=== PATIENT | female | born 1945 | race Caucasian/White ===

== ENCOUNTER → 2016-04-24 | Day surgery (SDC) | payer OTHER ==
[~2016-04-24] MED LIST: BUPIVACAINE HCL/PF 0.5% (5MG/ML) 10 ML VIAL ONE; BUPIVACAINE HCL/PF 2.5 MG/ML - 30 ML VIAL IJ ONE; DEXAMETHASONE SOD PHOSPHATE 4 MG/1 ML VIAL ONE; ISOSULFAN BLUE 10 MG/ML VIAL SQ ONE; LIDOCAINE HCL 2% JELLY (5 ML/TUBE) ONE; MIDAZOLAM HCL 2 MG/2 ML SINGLE DOSE VIAL ONE; ONDANSETRON 4 MG/2 ML VIAL ONE; PROPOFOL 20 ML ONE; ROCURONIUM BROMIDE 50 MG/5 ML VIAL ONE; SUCCINYLCHOLINE CHLORIDE 200 MG/10 ML VIAL ONE; ceFAZolin SODIUM 1 GM VIAL ONE
--- NOTE | 2016-04-26 09:47 | PATH ---
Surgical Pathology Report Patient Name: SHERRIE SCOTT [facility]. Rec. #: [id number] /Age/Gender: 1945 (Age: 70) / F Account: [id number] Location: [facility] RADIOLOGY U Taken: 04/24/2016 Received: 04/24/2016 Reported: 04/26/2016 Physicians: Adele Maier M.D. Specimen(s) Received LEFT BREAST CORE BIOPSY 1:00, 11CM FN Clinical History US: highly suspicious/malignant, left breast, 1:00, 11 cm FN Final Diagnosis BREAST, LEFT, 1:00, 11 CM FROM NIPPLE, US GUIDED CORE BIOPSY: INVASIVE DUCTAL CARCINOMA, MODERATELY DIFFERENTIATED, WITH LOBULAR GROWTH PATTERN (SEE COMMENT). 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 Comment: The largest extent of invasive carcinoma in one core is 1.0 cm. Immunohistochemical stain for E-cadherin performed and interpreted [facility] shows tumor cells with strong membranous staining for E-cadherin supporting ductal phenotype. Results of Estrogen Receptor (ER) and Progesterone Receptor (ND) studies performed at [facility] are as follows: ER (clone [id number] mouse monoclonal antibody by [employer]): >90% nuclear staining with strong to moderate intensity (Positive). ND (clone16 mouse monoclonal antibody by [employer]): 0% nuclear staining (Negative). Results of Her2 and Ki67 studies will be reported separately in an addendum. Positive and negative controls (internal if applicable) show appropriate results. Formalin fixation and cold ischemic times are within current ASCO/CAP recommendations for ER, ND and Her2 testing. Electronically Signed Isaías Snow M.D. Addendum Reported: 04/27/2016 Addendum Diagnosis Results of Her2 (IHC) & Ki-67 studies performed at [place], [place] (ET17-46) are as follows: Her2 IHC (EP3 from [employer], formerly known as [id number], using [employer] Polymer Refine detection kit): 3+ (Positive) Ki-67: 25-30% (Intermediate to high proliferation index) Positive and negative controls (internal if applicable) show appropriate results. Isaías Gwendolyn, M.D. Gross Description Received in formalin, labeled "left breast core biopsy 1:00" are five cylindrical fragments of doshi-pink tissue ranging from 0.7-1.6 cm in length and averages 0.2 cm in diameter. Submitted entirely in one cassette. Time to fixation: 1 min Formalin fixation time: ~7h AF/04/24/2016 final/04/24/2016
== END | disposition home or self-care (01) ==
LOC: FRADUS-SUR 12:22
PROVIDERS: ATTEND Surgery Surgical Oncology
PROC: 0HBU3ZX Excision of Left Breast, Percutaneous Approach, Diagnostic (ICD-10-PCS; principal; 2016-04-24)
DX: N63 Unspecified lump in breast (principal); C50.412 Malignant neoplasm of upper-outer quadrant of left female breast; D05.12 Intraductal carcinoma in situ of left breast
CPT/HCPCS: 19083; 88305-TC; 88342-TC

== ENCOUNTER 2016-05-16 07:26 | Day surgery (SDC) | payer OTHER ==
--- NOTE | 2016-05-09 15:31 | HP ---
Admitting History and Physical - Primary Care Physician PCP: Oscar Saucedo - Admission Chief Complaint: Left breast cancer History of Present Illness: 70 year old old female with 04/2016 mammogam showing 1.8cm mass left breast upper outer quadrant with microcalcifications and spiculated margins.. US showed 1.1 cm cm mass at 1:00 11 cm posterior from nipple. US core bx 04/24/2016 left breast 1:00 showed invasive ductal carcinoma and DCIS. History Source: Patient Limitations to Obtaining History: No Limitations - Past Medical History Cardiovascular: Yes: HTN, Hyperlipdemia - Past Surgical History Additional Past Surgical History: D and C - Smoking History Smoking history: Never smoked Have you smoked in the past 12 months: No Aproximately how many cigarettes per day: 0 - Alcohol/Substance Use Hx Alcohol Use: No Home Medications - Allergies Allergies/Adverse Reactions: Allergies Allergy/AdvReac Type Severity Reaction Status Date / Time aspirin AdvReac Severe Difficulty Verified 10/08/15 16:36 Breathing codeine [Codeine] AdvReac Severe Difficulty Verified 10/08/15 16:36 Breathing - Home Medications Home Medications: Ambulatory Orders Atorvastatin Ca [Lipitor] 10 mg PO HS 10/10/14 Family Disease History - Family Disease History Other Family History: maternal cousin 50 breast ca Physical Examination Breast(s): Yes: Other (diffusely nodular and dense 1.5 cm left UOQ firm mobile mass no adenopathy, right breast negative) Problem List - Problems (1) Breast cancer, left Code(s): C50.912 - MALIGNANT NEOPLASM OF UNSPECIFIED SITE OF LEFT FEMALE BREAST Qualifiers: Breast location: upper outer quadrant of breast Patient gender: female Qualified Code(s): C50.412 - Malignant neoplasm of upper-outer quadrant of left female breast Assessment/Plan Left breast wide excision mammogram localization, lymphoscintogram, sentenl node biopsy possible axillary node dissection, intra op radiation
[2016-05-10 13:55] VITALS: BMI 32.2
[2016-05-16] MEDS ORDERED: ONDANSETRON 4 MG/2 ML VIAL IVPB PRN (14:43)
[2016-05-16] MEDS ORDERED: DEXTROSE 5%-0.45% SALINE 1,000 ML IV SCH (14:45)
[2016-05-16] MEDS ORDERED: NEOSTIGMINE METHYLSULFATE 0.5 MG/ML - 10 ML MDV ONE (17:03)
[2016-05-16] MEDS ORDERED: oxyCODONE HCL 5 MG TABLET PO PRN (17:06)
[2016-05-16] MEDS ORDERED: PROMETHAZINE HCL 25 MG/1 ML VIAL IVPUSH PRN (17:06)
[2016-05-16] MEDS ORDERED: GLYCOPYRROLATE 0.2 MG/1 ML VIAL ONE (17:21)
--- NOTE | 2016-05-16 17:51 | PN ---
Progress Note (short form) - Note Progress Note: I was called in for intraoperative radiotherapy as part of the planned procedure. Dr. Saucedo removed the primary and sampled the lymph node. He felt that the node was highly suspicious for metastatic disease. We discussed whether to proceed with intraoperative radiation therapy. We agreed that if the node is positive she will still need external beam radiation. We decided not to deliver intraoperative treatment.
[2016-05-16] MEDS ORDERED: oxyCODONE HCL 5 MG TABLET ONE (19:11)
[2016-05-16 20:01] VITALS: BP 114/74; PULSE 72; TEMP 97.6
--- NOTE | 2016-05-17 08:58 | OP ---
DATE OF OPERATION: 05/16/2016 PREOPERATIVE DIAGNOSIS: Left breast cancer. POSTOPERATIVE DIAGNOSIS: Left breast cancer. PROCEDURE: Left breast partial mastectomy with tissue transfer and sentinel lymph node biopsy. ANESTHESIA: General, intubated. ATTENDING SURGEON: Dana Saucedo MD RESIDENTIAL TREATMENT COUNSELOR: LORETTA Kong COMPLICATIONS: None. PROCEDURE: Patient was made aware of the risks and benefits of the procedure and consented. Preoperatively, she had gone to Radiology where a needle was placed to index the lesion and Nuclear Medicine where technetium was infiltrated into the peritumoral tissue. She was then brought to the operating room and placed in the supine position. After general anesthesia was induced, the patient was intubated. Then 2.5 mL of 1% was infiltrated into the peritumoral tissues. The operative site was then prepped and draped in the usual sterile fashion. After approximately 10 minutes with gentle manual compression, a curvilinear incision was made in the left axilla, somewhat medially. Using electrocautery, tissues were dissected down to the axillary fat. Using the probe and the visual cue of the blue dye, 3 lymph nodes were excised; 2 of which were firm and very suspicious for malignancy. Palpation of the rest of the area revealed no other suspicious lymph nodes and the residual radioactive counts were less than 10% of the baseline. The lymph nodes were then submitted for permanent sectioning. Since the lesion was quite laterally in the axillary tail, a thick skin flap was made and the needle was withdrawn through the puncture site and wound out through the wound. Tissues around the wire were then sharply excised and submitted with a short suture superior. Specimen radiograph confirmed the presence of the index lesion. Additional segments were taken medial, inferior, lateral, superior, and anterior with a clip at the new margin. There is no deep section taken as the original specimen was dissected down to the pectoralis muscle. At this point, because the axillary nodes were felt to be positive and the defect was large with no real lateral border to buttress intraoperative radiation, this procedure was cancelled and the patient will receive full breast radiation with postoperative boost. The wound was copiously irrigated with normal saline. Hemostasis was maintained by electrocautery. Tissue flaps were made by taking the breast tissue off of pectoralis muscle superiorly and inferiorly, rotating in the tissue, filling in the defect with [id number] sutures and multiple layers of 2-0 Vicryl. The skin was then closed with deep 3-0 Vicryl followed by running subcuticular 4-0 Monocryl. Steri-Strips and sterile bandage was then applied. The patient tolerated the procedure well and was sent to the recovery room in excellent condition. DANA SAUCEDO M.D. [id number]
--- NOTE | 2016-05-19 13:24 | PATH ---
Surgical Pathology Report Patient Name: SHERRIE SCOTT [facility]. Rec. #: [id number] /Age/Gender: 1945 (Age: 70) / F Account: [id number] Location: [facility] AMBULATORY Taken: 05/16/2016 Received: 05/16/2016 Reported: 05/19/2016 Physicians: Oscar Saucedo M.D. Specimen(s) Received A: LEFT AXILLARY SENTINEL LYMPH NODES B: LEFT BREAST WIDE EXCISION C: LEFT BREAST MEDIAL SEGMENT D: LEFT BREAST INFERIOR SEGMENT E: LEFT BREAST LATERAL SEGMENT F: LEFT BREAST SUPERIOR SEGMENT G: LEFT BREAST ANTERIOR SEGMENT Clinical History Wide excision: Invasive Ca Final Diagnosis A. LYMPH NODES, LEFT AXILLARY SENTINEL, EXCISION: METASTATIC CARCINOMA INVOLVING ONE OF FOUR LYMPH NODES (1/4). THE LARGEST FOCUS OF METASTATIC CARCINOMA MEASURES 1.5 CM IN GREATEST DIMENSION (MACROMETASTASIS) AND EXTENSIVELY INVOLVES THE LYMPH NODE. EXTRANODAL EXTENSION IS IDENTIFIED. B. BREAST, LEFT, WIDE EXCISION: INVASIVE DUCTAL CARCINOMA, POORLY DIFFERENTIATED (TUBULE SCORE: 3/3, NUCLEAR GRADE:3/3, MITOTIC SCORE: 2/3; TOTAL JOSE SCORE: 8/9), MEASURING 1.4 CM IN GREATEST DIMENSION, MICROSCOPICALLY. DUCTAL CARCINOMA IN SITU (DCIS), SOLID TYPE, HIGH NUCLEAR GRADE IS PRESENT ADMIXED WITH INVASIVE CARCINOMA A MINOR COMPONENT. INVASIVE CARCINOMA EXTENDS TO THE MEDIAL MARGIN ALONG A BROAD FRONT AND FOCALLY TO THE ANTERIOR MARGIN. DCIS IS FOCALLY CLOSE TO (< 1 MM) THE MEDIAL MARGIN. SEE SPECIMEN C-G FOR FINAL MARGINS. LYMPHOVASCULAR INVASION: INDETERMINATE. PRIOR BIOPSY SITE CHANGES ARE PRESENT. PATHOLOGIC STAGE (pTNM): pT1c pN1a. SEE ALSO INVASIVE CARCINOMA CASE SUMMARY BELOW. C. BREAST, LEFT, MEDIAL SEGMENT, EXCISION: BENIGN BREAST TISSUE SHOWING PRIOR BIOPSY SITE CHANGES. NO RESIDUAL CARCINOMA IS IDENTIFIED. D. BREAST, LEFT, INFERIOR SEGMENT, EXCISION: BENIGN FIBROADIPOSE TISSUE AND SCANT SKELETAL MUSCLE. E. BREAST, LEFT, LATERAL SEGMENT, EXCISION: BENIGN FIBROADIPOSE TISSUE. F. BREAST, LEFT, SUPERIOR SEGMENT, EXCISION: BENIGN FIBROADIPOSE TISSUE. G. BREAST, LEFT, ANTERIOR SEGMENT, EXCISION: BENIGN BREAST TISSUE. Comments Breast Invasive Carcinoma: Surgical Pathology Cancer Case Summary Based on AJCC/UICC TNM, 7th edition Procedure _X_ Excision with image-guided localization Lymph Node Sampling _X_ [place] lymph node(s) Specimen Laterality _X_ Left Tumor Size: Size of Largest Invasive Carcinoma: 1.4 cm Tumor Focality _X_ Single focus of invasive carcinoma Macroscopic and Microscopic Extent of Tumor Nipple _X_ Not applicable (excisions less than total mastectomy) Skeletal Muscle _X_ Skeletal muscle is present and is uninvolved by carcinoma Ductal Carcinoma In Situ (DCIS) _X_ DCIS is present _X_ as a minor component (< 25% of tumor) Histologic Type of Invasive Carcinoma : _X_ Invasive carcinoma of no special type (ductal, not otherwise specified) Histologic Grade: ([place] Histologic Score) Tubular Differentiation _X_ Score 3 Nuclear Pleomorphism _X_ Score 3 Mitotic Rate _X_ Score 2 Overall Grade _X_ Grade 3: scores of 8 or 9 (poorly differentiated) Margins _X_ Margins uninvolved by invasive carcinoma Distance from closest margin: Invasive carcinoma extends to the medial margin and focally to the anterior margin in wide excision B. Final medial (C) and anterior (G) margins are uninvolved by carcinoma. _X_ Margins uninvolved by DCIS Distance from closest margin: DCIS is focally close to (< 1mm) the medial margin in wide excision B. Final medial margin (C) is negative for DCIS. Lymph-Vascular Invasion _X_ Indeterminate Lymph Nodes Total number of lymph nodes examined (sentinel and nonsentinel): 4 Number of sentinel lymph nodes examined: 4 Number of lymph nodes with macrometastases ( > 2 mm): 1 Number of lymph nodes with micrometastases (>0.2 mm to 2 mm and/or >200cells):0 Number of lymph nodes with isolated tumor cells (=0.2 mm and =200 cells): 0 Size of largest metastatic deposit (if present): 1.5 cm Extranodal Extension _X_ Present Pathologic Staging (pTNM) Primary Tumor (Invasive Carcinoma): pT1c Regional Lymph Nodes (pN): pN1a (sn) Biomarker Studies Results of ER and DC studies performed on prior biopsy ( D134) at [facility] are as follows: ER (clone 6F11 mouse monoclonal antibody by [employer]): >90 % nuclear staining with strong to moderate intensity (Positive). DC (clone16 mouse monoclonal antibody by [employer]): 0 % nuclear staining (Negative). Results of Her2 (IHC) & Ki-67 studies performed on prior biopsy ( D17- 34) at [place], [place] ( ET17-46 ) are as follows: Her2 IHC (EP3 from [employer], formerly known as [id number], using [employer] Refine detection kit): 3+ (Positive). Ki67: 25-30% (Intermediate to high). Electronically Signed Trinidad Singh M.D. Gross Description A. Received in formalin, labeled "left axillary sentinel nodes," are 4 doshi, irregular lymph nodes with attached fat ranging from 0.6-3.0 cm in greatest dimension. The lymph nodes are entirely submitted in 9 cassettes as follows: 1-3-one whole bisected lymph node each; 4-9-one whole serially sectioned lymph node. B. Received in formalin, labeled "left wide excision left breast," is a 4.3 x 2.8 x 2.3 cm. doshi-yellow, irregular, portion of fibroadipose tissue with a needle localization wire present. There is a short suture marking the superior aspect and a long suture marking the lateral aspect, per the surgeon. There is no skin present. The specimen is inked as follows: superior and lateral blue; inferior green; medial yellow; anterior red; deep black. The specimen is serially sectioned from superior to inferior. Sectioning reveals a 1.6 x 1.5 x 1.3 cm doshi, firm mass abutting the medial and anterior margins. The mass is focally at 0.3 cm from the deep margin and 0.9 cm from the lateral margin. The remaining margins appear widely clear of the mass. Cattle [employer] sections are submitted in 6 cassettes as follows: 1-3-one full-face section of mass each with medial, anterior and deep margins; 4-lateral margin; 5-superior margin; 6-inferior margin. Time to formalin fixation: 20 minutes Total formalin fixation time: Approximately 25 hours. C. Received in formalin, labeled "medial segment left breast," is a 4.8 x 3.1 x 1.3 cm area of portion of fibroadipose tissue with a clip marking the new margin, per the surgeon. The new margin is inked green and the specimen is serially sectioned. Sectioning reveals a focus of hemorrhage surrounded by focally firm fibrous tissue. No definitive masses are identified. The specimen is entirely and sequentially submitted in 8 cassettes. D. Received in formalin, labeled "inferior segment left breast," is a 2.0 x 1.7 x 0.7 cm irregular portion of fibroadipose tissue with a clip marking the new margin, per the surgeon. The new margin is inked green and the specimen is serially sectioned. The specimen is entirely submitted in 2 cassettes. E. Received in formalin, labeled "lateral segment left breast," is a 2.3 x 1.8 x 0.7 cm irregular portion of fibroadipose tissue with a clip marking the new margin, per the surgeon. The new margin is inked green and the specimen is serially sectioned. The specimen is entirely submitted in 2 cassettes. F. Received in formalin, labeled "superior segment left breast," is a 2.0 x 1.8 x 0.8 cm irregular portion of fibroadipose tissue with a clip marking the new margin, per the surgeon. The new margin is inked green and the specimen is serially sectioned. The specimen is entirely submitted in 2 cassettes. G. Received in formalin, labeled "anterior segment left breast," is a 2.4 x 1.7 x 0.8 cm irregular portion of fibroadipose tissue with a clip marking the new margin, per the surgeon. The new margin is inked green and the specimen is serially sectioned. The specimen is entirely submitted in 2 cassettes. 05/17/2016 saudi05/17/2016
== END 2016-05-16 19:45 | disposition home or self-care (01) ==
LOC: FASU 07:26
PROVIDERS: ATTEND Surgery Surgical Oncology
PROC: 0HBU0ZZ Excision of Left Breast, Open Approach (ICD-10-PCS; principal; 2016-05-16 13:00)
DX: C50.912 Malignant neoplasm of unspecified site of left female breast (principal)
CPT/HCPCS: 19281; 78195-TC; 88307-TC; 94760; A9541

== ENCOUNTER 2016-06-01 04:06 | Inpatient (IN) | payer OTHER ==
--- NOTE | 2016-06-01 04:49 | PDOC ---
History of Present Illness - General History Source: Patient <Juliano Dyson - Last Filed: 06/01/16 04:49> - General History Source: Patient Exam Limitations: No Limitations - History of Present Illness Initial Comments: 06/01/16 05:07 The patient is a 70 year old female, with a significant past medical history of left breast cancer, hypertension, hyperlipidemia, and bronchitis, who presents to the emergency department complaining of severe cough for approximately 2 weeks. The patient reports she presented to [facility] 05/[facility], where she had a lumpectomy procedure to her left breast. At the time of the surgery, she reports a slight cough. However, since the surgery her cough has worsened. The patient reports she presented to Dr. Reeves office on 05/23/16, where she was prescribed azithromycin for 6 days with no relief of symptoms. The patient reports she then presented to Dr. Frazier office on 05/27/16 for further evaluation, who prescribed nebulizer treatment, impotroprium, and albuterol every 4-6 hours, with no relief. She reports she was supposed to have a second surgery on 05/30/16, which required anesthesia, however, the anesthesiologist suggested they would not be able to perform the surgery due to poor lung function. The patient reports her cough is very occasionally productive of minimal green sputum. She reports her chest pain secondary to coughing. She reports her ribs and abdomen have begun to hurt due to coughing. As per , the patient has been audibly wheezing for several days. The patient denies any fever, chills, headache, or dizziness. The patient denies any palpitations, shortness of breath, or diaphoresis. The patient denies any recent travel or sick contacts. Allergies: Aspirin, codeine Past Surgical History: S/p lumpectomy of left breast (05/16/16) Social History: Non-smoker. Denies alcohol or drug use. PCP: Dr. Stevenson <Elba Ro - Last Filed: 06/01/16 19:35> - General Chief Complaint: Respiratory Stated Complaint: DIFFICULTY BREATHING Time Seen by Provider: 06/01/16 04:22 Past History - Past Medical History Anemia: No Asthma: No Cancer: Yes (breast) Cardiac Disorders: No CVA: No COPD: No CHF: No Dementia: No Diabetes: No GI Disorders: No Disorders: No HTN: Yes Hypercholesterolemia: Yes Liver Disease: No Suicide Attempt (Hx): No Seizures: No Thyroid Disease: No - Surgical History Abdominal Surgery: No (d & c) Appendectomy: No Cardiac Surgery: No Cholecystectomy: No Lung Surgery: No Neurologic Surgery: No Orthopedic Surgery: No - Immunization History Immunization Up to Date: Yes - Psycho/Social/Smoking Cessation Hx Anxiety: Yes Suicidal Ideation: No Smoking Status: No Smoking History: Never smoked Have you smoked in the past 12 months: No Number of Cigarettes Smoked Daily: 0 Information on smoking cessation initiated: No Hx Alcohol Use: No Drug/Substance Use Hx: No Substance Use Type: None Hx Substance Use Treatment: No <Juliano Dyson - Last Filed: 06/01/16 04:49> <Elba Ro - Last Filed: 06/01/16 19:35> - Past Medical History Allergies/Adverse Reactions: Allergies Allergy/AdvReac Type Severity Reaction Status Date / Time aspirin Allergy Severe Difficulty Verified 06/01/16 04:14 Breathing codeine [Codeine] Allergy Severe Difficulty Verified 06/01/16 04:14 Breathing Home Medications: Ambulatory Orders Atorvastatin Ca [Lipitor] 10 mg PO DAILY 10/10/14 Amlodipine Besylate 10 mg PO DAILY 05/10/16 Review of Systems - Review of Systems Able to Perform ROS?: Yes Comments:: 06/01/16 05:07 CONSTITUTIONAL: Absent: fever, no chills, no fatigue EYES: Absent: visual changes ENT: Absent: ear pain, no sore throat CARDIOVASCULAR: Present: +chest pain Absent: no palpitations RESPIRATORY: Present: +cough, +audible wheezing Absent: no SOB GI: Absent: abdominal pain, no nausea, no vomiting, no constipation, no diarrhea GENITOURINARY: Absent: dysuria, no frequency, no hematuria MUSKULOSKELETAL: Absent: back pain, no arthralgia, no myalgia SKIN: Absent: rash NEURO: Absent: headache <Elba Ro - Last Filed: 06/01/16 19:35> *Physical Exam - Vital Signs Last Vital Signs Temp Pulse Resp BP Pulse Ox 97.5 F L 111 H 18 137/84 92 L 06/01/16 04:15 06/01/16 04:15 06/01/16 04:15 06/01/16 04:15 06/01/16 04:15 <Juliano Dyson - Last Filed: 06/01/16 04:49> - Vital Signs Last Vital Signs Temp Pulse Resp BP Pulse Ox 97.5 F L 111 H 18 137/84 92 L 06/01/16 04:15 06/01/16 04:15 06/01/16 04:15 06/01/16 04:15 06/01/16 04:15 - Physical Exam Comments: 06/01/16 05:09 GENERAL: Well-appearing, well-nourished. No apparent distress. HEENT: Normocephalic, atraumatic. PERRL, EOM intact. CARDIOVASCULAR: Normal S1, S2. Regular rate and rhythm. PULMONARY: Mild respiratory distress. Lungs clear to auscultation bilaterally. Coarse bilateral wheezing. No rales or rhonchi. ABDOMEN: Soft, non-distended, non-tender. EXTREMITIES: Normal ROM in all four extremities. No gross deformities. SKIN: Warm, dry. No rash NEUROLOGICAL: No focal neurological deficits <Elba Ro - Last Filed: 06/01/16 19:35> ED Treatment Course - LABORATORY CBC & Chemistry Diagram: 06/01/16 05:10 06/01/16 05:10 - RADIOLOGY Radiograph Interpretation: 06/01/16 19:30 EXAM: CXR INTERPRETED BY: Dr. Shirley REVIEWED BY: Dr. Dyson IMPRESSION: No active disease in the chest and no change compared to prior study. EXAM: Chest CT INTERPRETED BY: Dr. Iyer REVIEWED BY: Dr. Dyson IMPRESSION: Questionable interstitial right upper lobe pneumonia. Left breast density should be correlated with known surgical and medical history, as neoplasm is not excluded. Slightly suboptimal opacification of the pulmonary arteries. <Elba Ro - Last Filed: 06/01/16 19:35> *DC/Admit/Observation/Transfer <Juliano Dyson - Last Filed: 06/01/16 04:49> - Attestations Scribe Attestion: 06/01/16 05:08 Documentation prepared by Elba Ro, acting as medical records auditor for Juliano Dyson DO. <Elba Ro - Last Filed: 06/01/16 19:35> Diagnosis at time of Disposition: Wheezing, Reactive airway disease, Dyspnea
[2016-06-01] MEDS ORDERED: ALBUTEROL SO4 2.5/IPRATROPIUM 0.5 INH SOL 3 ML VIAL.NEB. NEB STA (04:55)
[2016-06-01] MEDS ORDERED: MAGNESIUM SULF 50% (8.12 MEQ/2 ML-1 GM VIAL) IVPB ONE (04:55)
[2016-06-01 05:39] LABS: BASOPHIL 0.6 % (0-2.0); EOSINOPHIL 5.8 % (0-4.5); MCH 27.2 pg (25.7-33.7); MCHC 33.4 g/dl (32.0-36.0); MEAN CELL VOLUME 81.5 fl (80-96); MEAN PLT VOLUME 6.7 fl (7.5-11.1); NEUTROPHILS 67.5 % (42.8-82.8); PLATELET COUNT 382 K/MM3 (134-434); RDW 13.6 % (11.6-15.6)
[2016-06-01] MEDS ORDERED: MAGNESIUM SULF 50% (8.12 MEQ/2 ML-1 GM VIAL) ONE (05:53)
[2016-06-01 05:55] LABS: INR 0.98 (0.82-1.09); PROTHROMBIN TIME (PATIENT) 10.8 SEC (9.98-11.88)
[2016-06-01 06:20] LABS: ALBUMIN 3.6 g/dl (3.4-5.0); ANION GAP 11 (8-16); BILIRUBIN,TOTAL 0.2 mg/dL (0.2-1.0); CALCIUM 8.6 mg/dL (8.5-10.1); CO2 26 mmol/L (21-32); CREATININE 0.8 mg/dL (0.55-1.02); GLUCOSE,RANDOM 111 mg/dL (74-106); SGOT/AST 18 U/L (15-37); SGPT/ALT 23 U/L (12-78); TOT PROT 7.2 g/dl (6.4-8.2)
[2016-06-01 06:21] LABS: ALK PHOS 78 U/L (45-117)
[2016-06-01] MEDS ORDERED: ALBUTEROL SO4 2.5/IPRATROPIUM 0.5 INH SOL 3 ML VIAL.NEB. NEB ONE ×4 (06:35→07:45)
[2016-06-01] MEDS ORDERED: methylPREDNISolone NA SUCC 125 MG/2 ML VIAL ONE (07:36)
--- NOTE | 2016-06-01 07:38 | PDOC ---
*Physical Exam - Vital Signs Last Vital Signs Temp Pulse Resp BP Pulse Ox 98.2 F 108 H 21 145/89 96 06/01/16 07:27 06/01/16 07:27 06/01/16 07:27 06/01/16 07:27 06/01/16 07:27 - Physical Exam Comments: 06/01/16 07:30 SIGN IN Sign-out received from outgoing Emergency Physician Pt interviewed and examined Ancillary studies reviewed The patient is a 70 year old female, with a significant past medical history of left breast cancer, hypertension, hyperlipidemia, and bronchitis, who presents to the emergency department complaining of severe cough for approximately 2 weeks. The patient reports she presented to [facility] on 05/16/16, where she had a lumpectomy procedure to her left breast. At the time of the surgery, she reports a slight cough. However, since the surgery her cough has worsened. The patient reports she presented to Dr. Reeves office on 05/23/16, where she was prescribed azithromycin for 6 days with no relief of symptoms. The patient reports she then presented to Dr. Frazier office on 05/27/16 for further evaluation, who prescribed nebulizer treatment, impotroprium, and albuterol every 4-6 hours, with no relief. She reports she was supposed to have a second surgery on 05/30/16, which required anesthesia, however, the anesthesiologist suggested they would not be able to perform the surgery due to poor lung function. The patient reports her cough is very occasionally productive of minimal green sputum. She reports her chest pain secondary to coughing. She reports her ribs and abdomen have begun to hurt due to coughing. As per , the patient has been audibly wheezing for several days. The patient denies any fever, chills, headache, or dizziness. The patient denies any palpitations, shortness of breath, or diaphoresis. The patient denies any recent travel or sick contacts. Patient states that she has no history of asthma, COPD, or smoking history She denies any recent illnesses She states that the symptoms started after her surgery To my exam Vital Signs - 24 hr 06/01/16 06/01/16 06/01/16 04:15 05:20 07:27 Temperature 97.5 F L 98.2 F Pulse Rate 111 H Pulse Rate [ 108 H Apical] Respiratory 18 21 Rate Blood Pressure 137/84 Blood Pressure 145/89 [Right Arm] O2 Sat by Pulse 92 L 93 L 96 Oximetry (%) Patient is alert and answering questions Lungs with diffuse end expiratory wheezing in all lung schreiber, poor air movement , and prolonged expiratory phase Heart is tachycardic and regular at 100-105 There is no calf tenderness or swelling 2 duonebs and Solu-Medrol ordered Labwork Laboratory Results - last 24 hr 06/01/16 06/01/16 06/01/16 05:10 05:10 05:10 WBC 9.0 D RBC 4.80 Hgb 13.1 Hct 39.1 MCV 81.5 MCHC 33.4 RDW 13.6 Plt Count 382 D MPV 6.7 L Neutrophils % 67.5 Lymphocytes % 19.7 D Monocytes % 6.4 Eosinophils % 5.8 H D Basophils % 0.6 INR 0.98 Sodium 139 Potassium 3.8 Chloride 102 Carbon Dioxide 26 Anion Gap 11 BUN 12 Creatinine 0.8 Creat Clearance w eGFR > 60 Random Glucose 111 H Calcium 8.6 Total Bilirubin 0.2 D AST 18 ALT 23 Alkaline Phosphatase 78 Total Protein 7.2 Albumin 3.6 Blood Type Antibody Screen 06/01/16 05:10 WBC RBC Hgb Hct MCV MCHC RDW Plt Count MPV Neutrophils % Lymphocytes % Monocytes % Eosinophils % Basophils % INR Sodium Potassium Chloride Carbon Dioxide Anion Gap BUN Creatinine Creat Clearance w eGFR Random Glucose Calcium Total Bilirubin AST ALT Alkaline Phosphatase Total Protein Albumin Blood Type O POSITIVE Antibody Screen Negative 06/01/16 07:47 Will add BNP CTA chest as reviewed by sc-NAD Awaiting radiologist 06/01/16 08:49 CTA chest as read by radiology Suboptimal study, with no definite evidence of PE There is suboptimal opacification of the central pulmonary vasculature, with no filling defects suspicious for pulmonary embolism The lungs are free of pulmonary masses There is no consolidation or pleural effusions There is mildly increased interstitial markings diffusely, consistent with chronic lung disease Mild chronic lung disease with no acute pathology within the chest Patient starting to feel better after 2 nebs 06/01/16 09:26 BNP 35 06/01/16 09:36 Case discussed with , covering Dr. Stevenson Will place in observation ED Treatment Course - LABORATORY CBC & Chemistry Diagram: 06/01/16 05:10 06/01/16 05:10 - ADDITIONAL ORDERS Additional order review: Laboratory Results 06/01/16 06/01/16 05:10 05:10 INR 0.98 Sodium 139 Potassium 3.8 Chloride 102 Carbon Dioxide 26 Anion Gap 11 BUN 12 Creatinine 0.8 Creat Clearance w eGFR > 60 Random Glucose 111 H Calcium 8.6 Total Bilirubin 0.2 D AST 18 ALT 23 Alkaline Phosphatase 78 Total Protein 7.2 Albumin 3.6 06/01/16 05:10 RBC 4.80 MCV 81.5 MCHC 33.4 RDW 13.6 MPV 6.7 L Neutrophils % 67.5 Lymphocytes % 19.7 D Monocytes % 6.4 Eosinophils % 5.8 H D Basophils % 0.6 - Medications Given in the ED: ED Medications Discontinued Medications Generic Name Dose Route Start Last Admin Trade Name Freq PRN Reason Stop Dose Admin Albuterol/Ipratropium 1 amp 06/01/16 04:55 06/01/16 05:53 Duoneb - NEB 06/01/16 04:56 1 amp ONCE STA Administration Magnesium Sulfate 1 gm 06/01/16 04:55 06/01/16 05:21 Magnesium Sulfate IVPB 06/01/16 04:56 1 gm ONCE ONE Administration *DC/Admit/Observation/Transfer Diagnosis at time of Disposition: Wheezing, Reactive airway disease, Dyspnea - Discharge Dispostion Admit: Yes - Referrals Referrals: Felix Stevenson MD [Primary Care Provider] - - Patient Instructions - Post Discharge Activity
[2016-06-01] MEDS ORDERED: methylPREDNISolone NA SUCC 125 MG/2 ML VIAL IVPB ONE (07:44)
[2016-06-01 11:32] VITALS: BMI 31.9
[2016-06-01] MEDS: amLODIPine BESYLATE 10 MG TABLET (FP) PO SCH (14:16)
[2016-06-01] MEDS: ALBUTEROL SO4 0.083% IH SOL 2.5 MG/3 ML VIAL.NEB. NEB PRN ×3 (14:35→22:30)
[2016-06-01] MEDS: guaiFENesin/D-METHORPHAN HB 10 ML UNIT-DOSE CUPS PO PRN ×2 (17:30→22:37)
--- NOTE | 2016-06-01 18:24 | HP ---
CHIEF COMPLAINT: cough PCP: Dr. Stevenson HISTORY OF PRESENT ILLNESS: 70 year old female with a PMHx of HTN, HLD, recent diagnosed left breast CA, s/ p lumpectomy 05/16/16, patient complaining of a progressive non productive cough for the past two weeks. She admits to having this cough when she had surgewry. After she went to her primary Dr. Stevenson, was prescribed azithromycin. No relief after course of antibiotic, returned to PCP, where she was given ipratropium /albuterol inhaler. Cough has been persistent. She claims that last night she could barely breathe. Patient denies fever, chills, chest pain, n, v, leg swelling changes in bowel or bladder. 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 SHe also states that when around dust the coughing is worse. ER course was notable for: (1)CXR increased interstitial markings; no effusions (2)CTA negative for PE Recent Travel: no PAST MEDICAL HISTORY: HTN , HLD, left breast CA PAST SURGICAL HISTORY: lumpectomy left breast Social History: Smoking:no Alcohol:no Drugs: [facility] Family History: Allergies aspirin Allergy (Severe, Verified 06/01/16 04:14) Difficulty Breathing codeine [Codeine] Allergy (Severe, Verified 06/01/16 04:14) Difficulty Breathing HOME MEDICATIONS: Home Medications Medication Instructions Recorded Atorvastatin Ca [Lipitor] 10 mg PO DAILY 10/10/14 Amlodipine Besylate 10 mg PO DAILY 05/10/16 REVIEW OF SYSTEMS CONSTITUTIONAL: Absent: fever, chills, diaphoresis, generalized weakness, malaise, loss of appetite, weight change HEENT: Absent: rhinorrhea, nasal congestion, throat pain, throat swelling, difficulty swallowing, mouth swelling, ear pain, eye pain, visual changes CARDIOVASCULAR: Absent: chest pain, syncope, palpitations, irregular heart rate, lightheadedness , peripheral edema RESPIRATORY: POsitive:cough, shortness of breath Absent: , dyspnea with exertion, orthopnea, wheezing, stridor, hemoptysis GASTROINTESTINAL: Absent: abdominal pain, abdominal distension, nausea, vomiting, diarrhea, constipation, melena, hematochezia GENITOURINARY: Absent: dysuria, frequency, urgency, hesitancy, hematuria, flank pain, genital pain MUSCULOSKELETAL: Absent: myalgia, arthralgia, joint swelling, back pain, neck pain SKIN: Absent: rash, itching, pallor HEMATOLOGIC/IMMUNOLOGIC: Absent: easy bleeding, easy bruising, lymphadenopathy, frequent infections ENDOCRINE: Absent: unexplained weight gain, unexplained weight loss, heat intolerance, cold intolerance NEUROLOGIC: Absent: headache, focal weakness or paresthesias, dizziness, unsteady gait, seizure, mental status changes, bladder or bowel incontinence PSYCHIATRIC: Absent: anxiety, depression, suicidal or homicidal ideation, hallucinations. PHYSICAL EXAMINATION Vital Signs - 24 hr 06/01/16 06/01/16 14:00 14:18 Temperature 98.1 F Pulse Rate 98 H Respiratory 18 Rate Blood Pressure 142/81 145/72 GENERAL: Awake, alert, and fully oriented, in no acute distress. HEAD: Normal with no signs of trauma. EYES: Pupils equal, round and reactive to light, extraocular movements intact, sclera anicteric, conjunctiva clear. No lid lag. EARS, NOSE, THROAT: Ears normal, nares patent, oropharynx clear without exudates. Moist mucous membranes. NECK: Normal range of motion, supple without lymphadenopathy, JVD, or masses. LUNGS: decreased Breath sounds equal, positive wheezes, and no crackles. No accessory muscle use. HEART: Regular rate and rhythm, normal S1 and S2 without murmur, rub or gallop. ABDOMEN: Soft, nontender, not distended, normoactive bowel sounds, no guarding, no rebound, no masses. No hepatomegaly or splenomegaly. MUSCULOSKELETAL: Normal range of motion at all joints. No bony deformities or tenderness. No CVA tenderness. UPPER EXTREMITIES: 2+ pulses, warm, well-perfused. No cyanosis. No clubbing. Cap refill <2 seconds. No peripheral edema. LOWER EXTREMITIES: 2+ pulses, warm, well-perfused. No calf tenderness. No peripheral edema. NEUROLOGICAL: Cranial nerves II-XII intact. Normal speech. Normal gait. PSYCHIATRIC: Cooperative. Good eye contact. Appropriate mood and affect. SKIN: Warm, dry, normal turgor, no rashes or lesions noted. ASSESSMENT/PLAN: 70 year old female with a PMHx of HTN , HLD , presents with persistent cough that has failed outpatient treatment. She has been admitted for acute bronchospasm. 1. Acute Bronchspasm vs possible asthma - Chest x ray increased interstitial lung markings; no effusions -Ct lung shows negative for PE; positive chronic lung finding with atelectasis -IV solumedrol 125 x1 in er -IV solumedrol 40mg q8h -albuterol guero q4h prn -pulmonaryconsult 2. Hypertension: -norvas 10mg po daily 3. Hyperlipidemia: -lipitor 20mg po daily FEN: FLuids: n/a intake po Electrolytes: wnl Diet: low salt VTE prophylaxis: observation patient ambulate on own; scds Disposition: obs ; watch clinically Problem List - Problem (1) Reactive airway disease Code(s): J45.909 - UNSPECIFIED ASTHMA, UNCOMPLICATED (2) Wheezing Code(s): R06.2 - WHEEZING (3) Bronchospasm Code(s): J98.01 - ACUTE BRONCHOSPASM (4) Hypertension Code(s): I10 - ESSENTIAL (PRIMARY) HYPERTENSION (5) Hyperlipemia Code(s): E78.5 - HYPERLIPIDEMIA, UNSPECIFIED Visit type - Emergency Visit Emergency Visit: Yes ED Registration Date: 06/01/16 Care time: The patient presented to the Emergency Department on the above date and was hospitalized for further evaluation of their emergent condition. - New Patient This patient is new to me today: Yes Date on this admission: 06/01/16 - Critical Care Critical Care patient: No
--- NOTE | 2016-06-01 19:10 | PN ---
Teaching Attending Note Name of Resident: Lisa Alvarado ATTENDING PHYSICIAN STATEMENT I saw and evaluated the patient. I reviewed the resident's note and discussed the case with the resident. I agree with the resident's findings and plan as documented. SUBJECTIVE: OBJECTIVE: Vital Signs Period Temp Pulse Resp BP Sys/Hunter Pulse Ox Last 24 Hr 97.5 F-98.2 F 98-111 18-21 137-145/72-89 92-96 HEART: LUNGS: ABDOMEN: EXTREMITIES: ASSESSMENT AND PLAN:
[2016-06-01] MEDS: ATORVASTATIN CA 10 MG TABLET (FP) PO SCH (22:16)
[2016-06-02] MEDS ORDERED: ALBUTEROL SO4 2.5/IPRATROPIUM 0.5 INH SOL 3 ML VIAL.NEB. NEB ONE (00:23)
[2016-06-02] MEDS: guaiFENesin/D-METHORPHAN HB 10 ML UNIT-DOSE CUPS PO PRN ×2 (06:08→13:38)
[2016-06-02] MEDS: methylPREDNISolone NA SUCC 40 MG/1 ML VIAL IVPB SCH ×5 (07:50→22:19)
[2016-06-02] MEDS ORDERED: ALBUTEROL SO4 2.5/IPRATROPIUM 0.5 INH SOL 3 ML VIAL.NEB. NEB PRN (08:09)
[2016-06-02 08:35] LABS: BASOPHIL 0.3 % (0-2.0); EOSINOPHIL 0.2 % (0-4.5); MCH 26.9 pg (25.7-33.7); MCHC 33.1 g/dl (32.0-36.0); MEAN CELL VOLUME 81.5 fl (80-96); MEAN PLT VOLUME 6.8 fl (7.5-11.1); NEUTROPHILS 77.7 % (42.8-82.8); PLATELET COUNT 356 K/MM3 (134-434); RDW 13.8 % (11.6-15.6); WHITE BLOOD COUNT 12.3 K/mm3 (4.0-10.0)
[2016-06-02 08:59] LABS: ALBUMIN 3.5 g/dl (3.4-5.0); ALK PHOS 74 U/L (45-117); ANION GAP 12 (8-16); BILIRUBIN,TOTAL 0.3 mg/dL (0.2-1.0); CALCIUM 8.5 mg/dL (8.5-10.1); CO2 24 mmol/L (21-32); CREATININE 0.8 mg/dL (0.55-1.02); GLUCOSE,RANDOM 94 mg/dL (74-106); SGOT/AST 11 U/L (15-37); SGPT/ALT 22 U/L (12-78); TOT PROT 6.7 g/dl (6.4-8.2)
[2016-06-02] MEDS: amLODIPine BESYLATE 10 MG TABLET (FP) PO SCH (09:24)
--- NOTE | 2016-06-02 11:49 | PN ---
Progress Note (short form) - Note Progress Note: PULMONARY CONSULTATION DICTATED 06/02/16 IMP ASTHMATIC BRONCHITIS BREAST CA S/P LUMPECTOMY HTN HLD PLAN IV STEROIDS INHALED BROCHODILATORS INHALED STEROIDS MONITOR PEAK FLOW PFTS OUTPATIENT DR REINA Problem List - Problems (1) Dyspnea Code(s): R06.00 - DYSPNEA, UNSPECIFIED (2) Hyperlipemia Code(s): E78.5 - HYPERLIPIDEMIA, UNSPECIFIED (3) Hypertension Code(s): I10 - ESSENTIAL (PRIMARY) HYPERTENSION (4) Reactive airway disease Code(s): J45.909 - UNSPECIFIED ASTHMA, UNCOMPLICATED (5) Breast cancer, left Code(s): C50.912 - MALIGNANT NEOPLASM OF UNSPECIFIED SITE OF LEFT FEMALE BREAST Qualifiers: Breast location: upper outer quadrant of breast Patient gender: female Qualified Code(s): C50.412 - Malignant neoplasm of upper-outer quadrant of left female breast (6) Bronchospasm Code(s): J98.01 - ACUTE BRONCHOSPASM (7) Cough Code(s): R05 - COUGH (8) Asthmatic bronchitis Code(s): J45.909 - UNSPECIFIED ASTHMA, UNCOMPLICATED
--- NOTE | 2016-06-02 13:09 | PN ---
<Lisa Alvarado - Last Filed: 06/02/16 13:09> Physical Exam: SUBJECTIVE: Patient seen and examined, breathing has improved with duoneb and steroids. Patient still admits to couch and wheeze. Denies fever, chills, chest pain, sputum production, leg swelling. OBJECTIVE: Vital Signs Period Temp Pulse Resp BP Sys/Hunter Pulse Ox Last 24 Hr 97.9 F-98.2 F 95-98 18-20 124-145/72-81 93-94 GENERAL: The patient is awake, alert, and fully oriented, in no acute distress. HEAD: Normal with no signs of trauma. EYES: PERRL, extraocular movements intact, sclera anicteric, conjunctiva clear. No ptosis. ENT: Ears normal, nares patent, oropharynx clear without exudates, moist mucous membranes. NECK: Trachea midline, full range of motion, supple. LUNGS: Breath sounds equal, bilateral wheezes throughout lung field, no crackles, no accessory muscle use. HEART: Regular rate and rhythm, S1, S2 without murmur, rub or gallop. ABDOMEN: Soft, nontender, nondistended, normoactive bowel sounds, no guarding, no rebound, no hepatosplenomegaly, no masses. EXTREMITIES: 2+ pulses, warm, well-perfused, no edema. NEUROLOGICAL: Cranial nerves II through XII grossly intact. Normal speech, gait not observed. PSYCH: Normal mood, normal affect. SKIN: Warm, dry, normal turgor, no rashes or lesions noted CBC, BMP 06/02/16 06:30 06/02/16 06:30 Active Medications Generic Name Dose Route Start Last Admin Trade Name Bonifacioq PRN Reason Stop Dose Admin Albuterol Sulfate 1 amp 06/02/16 11:51 Ventolin 0.083% Nebulizer Soln - NEB Q4H PRN SHORT OF BREATH/WHEEZING Amlodipine Besylate 10 mg 06/01/16 14:00 06/02/16 09:24 Norvasc - PO 10 mg DAILY LUCÍA Administration Atorvastatin Calcium 10 mg 06/01/16 22:00 06/01/16 22:16 Lipitor - PO 10 mg HS LUCÍA Administration Budesonide/Formoterol Fumarate 2 puff 06/02/16 12:00 Symbicort 160/4.5mcg - IH BID LUCÍA Guaifenesin 10 ml 06/01/16 14:43 06/02/16 06:08 Robitussin Dm - PO 10 ml Q4H PRN Administration COUGH Methylprednisolone Sodium Succinate 40 mg 06/02/16 15:00 Solu-Medrol - IVPB Q6H-IV LUCÍA Tiotropium [place] 1 puff 06/02/16 12:00 Spiriva - IH DAILY LUCÍA ASSESSMENT/PLAN: 70 year old female with a PMHx of HTN , HLD , presents with persistent cough that has failed outpatient treatment. She has been admitted for acute bronchospasm. 1. Acute Bronchspasm secondary to possible asthma - Chest x ray increased interstitial lung markings; no effusions -Ct lung shows negative for PE; positive chronic lung finding with atelectasis -IV solumedrol 125 x1 in er -IV solumedrol 40mg q8h -albuterol guero q4h prn -pulmonary consult: advise continue duoneb, steroids, pft as outpatient 2. Hypertension: -norvas 10mg po daily 3. Hyperlipidemia: -lipitor 20mg po daily 4. Leukocytosis: -most likely secondary to steriod -trend cbc, monitor clinically FEN: FLuids: n/a intake po Electrolytes: wnl Diet: low salt VTE prophylaxis: observation patient ambulate on own; scds Disposition: obs ; watch clinically Problem List - Problems (1) Reactive airway disease Code(s): J45.909 - UNSPECIFIED ASTHMA, UNCOMPLICATED (2) Wheezing Code(s): R06.2 - WHEEZING (3) Bronchospasm Code(s): J98.01 - ACUTE BRONCHOSPASM (4) Hypertension Code(s): I10 - ESSENTIAL (PRIMARY) HYPERTENSION (5) Hyperlipemia Code(s): E78.5 - HYPERLIPIDEMIA, UNSPECIFIED Visit type - Emergency Visit Emergency Visit: Yes ED Registration Date: 06/01/16 Care time: The patient presented to the Emergency Department on the above date and was hospitalized for further evaluation of their emergent condition. - New Patient This patient is new to me today: No - Critical Care Critical Care patient: No <Dave Martinez - Last Filed: 06/03/16 12:47> Physical Exam: ATTENDING PHYSICIAN STATEMENT I saw and evaluated the patient. I reviewed the resident's note and discussed the case with the resident. I agree with the resident's findings and plan as documented. SUBJECTIVE: seen and evaluated at the bedside OBJECTIVE: expiratory wheezing throughout but in no respiratory distress ASSESSMENT AND PLAN: 70 year old woman admitted for acute bronchospasm Bronchospasm -pt has no history of Asthma but recently was treated for bronchitis by pulm as an outpatient -has diffuse expiratory wheezing -CXR clear; CT chest shows no consolidations -cont solumedrol 40 Q6 as per pulm recs
[2016-06-02] MEDS: BUDESONIDE/FORMETEROL FUMARATE 160/4.5 mcg INHALER IH SCH ×2 (13:38→22:19)
[2016-06-02] MEDS: TIOTROPIUM BROMIDE 18 MCG/INH (DEVICE W/ 5 CAPSULES) IH SCH (13:39)
[2016-06-02] MEDS: ALBUTEROL SO4 0.083% IH SOL 2.5 MG/3 ML VIAL.NEB. NEB PRN ×3 (13:51→22:38)
--- NOTE | 2016-06-02 16:40 | CONS ---
DATE OF CONSULTATION: 06/02/2016 PULMONARY CONSULTATION REFERRING PHYSICIAN: Robert Cassidy M.D. HISTORY OF PRESENT ILLNESS: The patient is a 70-year-old white female with past medical history of left breast CA recently diagnosed status post lumpectomy 3 weeks ago, hypertension, hyperlipidemia, history of bronchitis, nonsmoker admitted to [facility] complaint of cough, shortness of breath, bronchospasm approximately 2 weeks' duration. Patient underwent a lumpectomy on May 16, 2016. Prior to procedure, he had a mild cough. Postoperative the patient started developing increasing cough and chest congestion as well as oozing. She went to see PMD at which time she describes azithromycin for 6 days. That offered no relief. She notified me for a refill of albuterol a couple of days later, and said she initially felt some improvement, but then started developing increasing shortness of breath, cough, and bronchospasm. Denies any chest pains or palpitations. States caused productive occasional green sputum, denies any hemoptysis. She was subsequently admitted. Her symptoms got worse, at which time she was finally admitted on June 01, secondary to increasing shortness of breath, cough, or wheezing. She denies any history of COPD or asthma in the past. She is a nonsmoker. There is no history of occupational exposure to chemicals or fumes. There is no history of DVT or PE in the past. Patient was admitted, underwent a CTA which was negative for PE. She was started on inhaled bronchodilators and steroids with some clinical improvement. PAST MEDICAL HISTORY: Again includes history of left breast CA status post lumpectomy, hypertension, hyperlipidemia, bronchitis. REVIEW OF SYSTEMS: Positive cough. Positive bronchospasm. Positive dyspnea. No chest pain. No palpitations. No hemoptysis. No abdominal pain. No lower extremity edema. CURRENT MEDICATIONS: Include Solu-Medrol, Robitussin, DuoNeb, Norvasc, and Lipitor. PHYSICAL EXAMINATION: General: The patient is a well-developed, well-nourished female, awake, alert, in no acute distress. Vital signs: She is afebrile blood pressure 143/79, respiratory rate 20, O2 saturation 93 on 4 L. HEENT: Head is normocephalic, atraumatic. Neck: Supple. Heart: Regular. S1, S2. Chest: Diffuse bilateral expiratory and inspiratory wheezes. Abdomen: Soft. Bowel sounds positive. Extremities: No cyanosis, edema. LABORATORY: WBC is 12.3, hemoglobin 12.4, hematocrit 37.4, platelet count 356,000. INR is 0.98. BUN 15, creatinine 0.8, BNP 35.9. Chest CT no infiltrates, no effusions, no evidence of PE. IMPRESSION: 1. Asthmatic bronchitis. 2. History of hypertension. 3. Breast carcinoma status post lumpectomy. PLAN: IV steroids, inhaled bronchodilators, start inhaled corticosteroids, monitor peak flow, PFTs as outpatient. CHRIS REINA M.D. [id number]
[2016-06-02] MEDS: HEPARIN NA (PORCINE) 5,000 UNITS/ML 1ML VIAL SQ SCH (22:20)
[2016-06-02] MEDS: ATORVASTATIN CA 10 MG TABLET (FP) PO SCH (22:20)
[2016-06-03] MEDS: ALBUTEROL SO4 0.083% IH SOL 2.5 MG/3 ML VIAL.NEB. NEB PRN ×5 (02:25→23:00)
[2016-06-03] MEDS: guaiFENesin/D-METHORPHAN HB 10 ML UNIT-DOSE CUPS PO PRN ×3 (02:37→22:02)
[2016-06-03] MEDS: methylPREDNISolone NA SUCC 40 MG/1 ML VIAL IVPB SCH ×4 (02:37→22:02)
[2016-06-03] MEDS: HEPARIN NA (PORCINE) 5,000 UNITS/ML 1ML VIAL SQ SCH ×3 (06:36→22:03)
[2016-06-03 08:47] LABS: BASOPHIL 0.1 % (0-2.0); MCH 27.1 pg (25.7-33.7); MCHC 33.2 g/dl (32.0-36.0); MEAN CELL VOLUME 81.5 fl (80-96); MEAN PLT VOLUME 6.8 fl (7.5-11.1); NEUTROPHILS 90.5 % (42.8-82.8); PLATELET COUNT 374 K/MM3 (134-434); WHITE BLOOD COUNT 12.3 K/mm3 (4.0-10.0)
[2016-06-03 09:16] LABS: ALBUMIN 3.7 g/dl (3.4-5.0); ANION GAP 12 (8-16); CO2 24 mmol/L (21-32); GLUCOSE,RANDOM 108 mg/dL (74-106); SGOT/AST 15 U/L (15-37)
[2016-06-03 09:20] LABS: ALK PHOS 74 U/L (45-117); BILIRUBIN,TOTAL 0.3 mg/dL (0.2-1.0); CREATININE 0.8 mg/dL (0.55-1.02); SGPT/ALT 24 U/L (12-78); TOT PROT 7.3 g/dl (6.4-8.2)
[2016-06-03] MEDS: TIOTROPIUM BROMIDE 18 MCG/INH (DEVICE W/ 5 CAPSULES) IH SCH (10:42)
[2016-06-03] MEDS: amLODIPine BESYLATE 10 MG TABLET (FP) PO SCH (10:42)
[2016-06-03] MEDS: BUDESONIDE/FORMETEROL FUMARATE 160/4.5 mcg INHALER IH SCH ×2 (10:44→22:02)
--- NOTE | 2016-06-03 12:48 | PN ---
Progress Note, Physician - Current Medication List Current Medications: Active Medications Albuterol Sulfate (Ventolin 0.083% Nebulizer Soln -) 1 amp NEB Q3H PRN PRN Reason: SHORT OF BREATH/WHEEZING Amlodipine Besylate (Norvasc -) 10 mg PO DAILY [facility] Last Admin: 06/03/16 10:42 Dose: 10 mg Atorvastatin Calcium (Lipitor -) 10 mg PO HS [facility] Last Admin: 06/02/16 22:20 Dose: 10 mg Budesonide/Formoterol Fumarate (Symbicort 160/4.5mcg -) 2 puff IH BID [facility] Last Admin: 06/03/16 10:44 Dose: 2 puff Guaifenesin (Robitussin Dm -) 10 ml PO Q4H PRN PRN Reason: COUGH Last Admin: 06/03/16 10:56 Dose: 10 ml Heparin Sodium (Porcine) (Heparin -) 5,000 unit SQ TID [facility] Last Admin: 06/03/16 06:36 Dose: 5,000 unit Methylprednisolone Sodium Succinate (Solu-Medrol -) 40 mg IVPB Q6H-IV [facility] Last Admin: 06/03/16 10:00 Dose: 40 mg Tiotropium [place] (Spiriva -) 1 puff IH DAILY [facility] Last Admin: 06/03/16 10:42 Dose: 1 puff - Objective Vital Signs: Vital Signs Temperature 97.9 F 06/03/16 08:00 Pulse Rate 95 H 06/03/16 08:00 Respiratory Rate 20 06/03/16 08:00 Blood Pressure 148/90 06/03/16 08:00 O2 Sat by Pulse Oximetry (%) 95 06/02/16 21:00 Constitutional: Yes: Well Nourished, No Distress, Calm Eyes: Yes: WNL, Conjunctiva Clear HENT: Yes: WNL, Atraumatic, Normocephalic Neck: Yes: WNL, Supple, Trachea Midline Cardiovascular: Yes: WNL, Regular Rate and Rhythm Respiratory: Yes: Wheezes Gastrointestinal: Yes: WNL, Normal Bowel Sounds Musculoskeletal: Yes: WNL Extremities: Yes: WNL Edema: No Integumentary: Yes: WNL Neurological: Yes: WNL, Alert, Oriented ...Motor Strength: WNL Psychiatric: Yes: WNL Labs: CBC, BMP 06/03/16 08:05 06/03/16 08:05 INR, PTT INR 0.98 (0.82-1.09) 06/01/16 05:10 Impression/Plan Impression/Plan: 70 year old woman admitted for acute bronchospasm Bronchospasm -pt has no history of Asthma but recently was treated for bronchitis by pulm as an outpatient -has diffuse expiratory wheezing -CXR clear; CT chest shows no consolidations -cont solumedrol 40 Q6 as per pulm recs Visit type - Emergency Visit Emergency Visit: Yes ED Registration Date: 06/02/16 Care time: The patient presented to the Emergency Department on the above date and was hospitalized for further evaluation of their emergent condition. - New Patient This patient is new to me today: No - Critical Care Critical Care patient: No
--- NOTE | 2016-06-03 14:34 | PN ---
Progress Note (short form) - Note Progress Note: PULMONARY VSS/AFEBRILE STILL W WHEEZES ANICTERIC B/L END EXP WHEEZE S1S2 BS+ NO EDEMA LABS/MEDS/NOTES/IMAGING REVIEWED CONTINUE IV STEROIDS/SAME DOSE FRANCESCO/LABA/LAMA/ICS CHECK DAILY PEAK FLOW Elsie GUERRA MD
[2016-06-03] MEDS ORDERED: PT OWN MED DRAWER 7, Y5N ONE (21:58)
[2016-06-03] MEDS: ATORVASTATIN CA 10 MG TABLET (FP) PO SCH (22:03)
[2016-06-04] MEDS: ALBUTEROL SO4 0.083% IH SOL 2.5 MG/3 ML VIAL.NEB. NEB PRN ×4 (02:01→19:12)
[2016-06-04] MEDS: methylPREDNISolone NA SUCC 40 MG/1 ML VIAL IVPB SCH ×4 (03:38→21:49)
[2016-06-04] MEDS: HEPARIN NA (PORCINE) 5,000 UNITS/ML 1ML VIAL SQ SCH ×3 (06:44→21:49)
--- NOTE | 2016-06-04 08:23 | PN ---
Progress Note, Physician - Current Medication List Current Medications: Active Medications Albuterol Sulfate (Ventolin 0.083% Nebulizer Soln -) 1 amp NEB Q3H PRN PRN Reason: SHORT OF BREATH/WHEEZING Last Admin: 06/04/16 02:01 Dose: 1 amp Amlodipine Besylate (Norvasc -) 10 mg PO DAILY [facility] Last Admin: 06/03/16 10:42 Dose: 10 mg Atorvastatin Calcium (Lipitor -) 10 mg PO HS [facility] Last Admin: 06/03/16 22:03 Dose: 10 mg Budesonide/Formoterol Fumarate (Symbicort 160/4.5mcg -) 2 puff IH BID [facility] Last Admin: 06/03/16 22:02 Dose: 2 puff Guaifenesin (Robitussin Dm -) 10 ml PO Q4H PRN PRN Reason: COUGH Last Admin: 06/03/16 22:02 Dose: 10 ml Heparin Sodium (Porcine) (Heparin -) 5,000 unit SQ TID [facility] Last Admin: 06/04/16 06:44 Dose: 5,000 unit Methylprednisolone Sodium Succinate (Solu-Medrol -) 40 mg IVPB Q6H-IV [facility] Last Admin: 06/04/16 03:38 Dose: 40 mg Tiotropium [place] (Spiriva -) 1 puff IH DAILY [facility] Last Admin: 06/03/16 10:42 Dose: 1 puff - Objective Vital Signs: Vital Signs Temperature 98.1 F 06/04/16 06:00 Pulse Rate 87 06/04/16 06:00 Respiratory Rate 18 06/04/16 06:00 Blood Pressure 127/82 06/04/16 06:00 O2 Sat by Pulse Oximetry (%) 97 06/03/16 13:00 Constitutional: Yes: Well Nourished, No Distress, Calm Eyes: Yes: WNL, Conjunctiva Clear HENT: Yes: WNL, Atraumatic, Normocephalic Neck: Yes: WNL, Supple, Trachea Midline Cardiovascular: Yes: WNL, Regular Rate and Rhythm Respiratory: Yes: Wheezes (improved from yesterday) Gastrointestinal: Yes: WNL, Normal Bowel Sounds Musculoskeletal: Yes: WNL Extremities: Yes: WNL Edema: No Integumentary: Yes: WNL Neurological: Yes: WNL, Alert, Oriented ...Motor Strength: WNL Psychiatric: Yes: WNL Labs: CBC, BMP 06/03/16 08:05 06/03/16 08:05 INR, PTT INR 0.98 (0.82-1.09) 06/01/16 05:10 Impression/Plan Impression/Plan: 70 year old woman admitted for acute bronchospasm Bronchospasm -pt has no history of Asthma but recently was treated for bronchitis by pulm as an outpatient -has diffuse expiratory wheezing but is much improved from yesterday -CXR clear; CT chest shows no consolidations -cont solumedrol 40 Q6 as pt is just starting to improve Visit type - Emergency Visit Emergency Visit: Yes ED Registration Date: 06/02/16 Care time: The patient presented to the Emergency Department on the above date and was hospitalized for further evaluation of their emergent condition. - New Patient This patient is new to me today: No - Critical Care Critical Care patient: No - Discharge Referral Referred to [facility] Med P.C.: No
[2016-06-04] MEDS ORDERED: PT OWN MED DRAWER 7, Y5N ONE ×2 (09:12→21:48)
[2016-06-04] MEDS: amLODIPine BESYLATE 10 MG TABLET (FP) PO SCH (09:20)
[2016-06-04] MEDS: BUDESONIDE/FORMETEROL FUMARATE 160/4.5 mcg INHALER IH SCH ×2 (09:21→21:49)
[2016-06-04] MEDS: TIOTROPIUM BROMIDE 18 MCG/INH (DEVICE W/ 5 CAPSULES) IH SCH (09:21)
--- NOTE | 2016-06-04 13:35 | PN ---
Progress Note (short form) - Note Progress Note: PULMONARY VSS/AFEBRILE SUBJECTIVE IMPROVEMENT ANICTERIC B/L END EXP WHEEZE S1S2 BS+ NO EDEMA LABS/MEDS/NOTES/IMAGING REVIEWED CONTINUE IV STEROIDS/SAME DOSE FRANCESCO/LABA/LAMA/ICS CHECK DAILY PEAK FLOW Elsie GUERRA MD
[2016-06-04] MEDS: guaiFENesin/D-METHORPHAN HB 10 ML UNIT-DOSE CUPS PO PRN (19:26)
[2016-06-04] MEDS: ATORVASTATIN CA 10 MG TABLET (FP) PO SCH (21:49)
[2016-06-05] MEDS: ALBUTEROL SO4 0.083% IH SOL 2.5 MG/3 ML VIAL.NEB. NEB PRN ×5 (01:29→19:49)
[2016-06-05] MEDS: methylPREDNISolone NA SUCC 40 MG/1 ML VIAL IVPB SCH ×3 (02:11→21:43)
[2016-06-05] MEDS ORDERED: PT OWN MED DRAWER 7, Y5N ONE ×3 (05:30→21:43)
[2016-06-05] MEDS: HEPARIN NA (PORCINE) 5,000 UNITS/ML 1ML VIAL SQ SCH ×3 (05:59→21:40)
[2016-06-05] MEDS: amLODIPine BESYLATE 10 MG TABLET (FP) PO SCH (10:36)
[2016-06-05] MEDS: BUDESONIDE/FORMETEROL FUMARATE 160/4.5 mcg INHALER IH SCH ×2 (10:37→21:43)
[2016-06-05] MEDS: guaiFENesin/D-METHORPHAN HB 10 ML UNIT-DOSE CUPS PO PRN ×2 (10:39→21:43)
[2016-06-05] MEDS: TIOTROPIUM BROMIDE 18 MCG/INH (DEVICE W/ 5 CAPSULES) IH SCH (10:43)
--- NOTE | 2016-06-05 13:33 | PN ---
Progress Note, Physician History of Present Illness: pulmonary alert,feeling better,sob improving,less wheezes - Current Medication List Current Medications: Active Medications Albuterol Sulfate (Ventolin 0.083% Nebulizer Soln -) 1 amp NEB Q3H PRN PRN Reason: SHORT OF BREATH/WHEEZING Last Admin: 06/05/16 10:50 Dose: 1 amp Amlodipine Besylate (Norvasc -) 10 mg PO DAILY [facility] Last Admin: 06/05/16 10:36 Dose: 10 mg Atorvastatin Calcium (Lipitor -) 10 mg PO HS [facility] Last Admin: 06/04/16 21:49 Dose: 10 mg Budesonide/Formoterol Fumarate (Symbicort 160/4.5mcg -) 2 puff IH BID [facility] Last Admin: 06/05/16 10:37 Dose: 2 puff Guaifenesin (Robitussin Dm -) 10 ml PO Q4H PRN PRN Reason: COUGH Last Admin: 06/05/16 10:39 Dose: 10 ml Heparin Sodium (Porcine) (Heparin -) 5,000 unit SQ TID [facility] Last Admin: 06/05/16 05:59 Dose: 5,000 unit Methylprednisolone Sodium Succinate (Solu-Medrol -) 40 mg IVPB Q6H-IV [facility] Last Admin: 06/05/16 10:37 Dose: 40 mg Tiotropium [place] (Spiriva -) 1 puff IH DAILY [facility] Last Admin: 06/05/16 10:43 Dose: 1 puff - Objective Vital Signs: Vital Signs Temperature 97 F L 06/05/16 09:00 Pulse Rate 100 H 06/05/16 09:00 Respiratory Rate 18 06/05/16 09:00 Blood Pressure 140/82 06/05/16 09:00 O2 Sat by Pulse Oximetry (%) 96 06/05/16 09:00 Constitutional: Yes: Well Nourished, Calm Eyes: Yes: Occular Prosthesis HENT: Yes: WNL Neck: Yes: WNL Cardiovascular: Yes: Regular Rate and Rhythm, S1, S2 Respiratory: Yes: Wheezes (few scattered katerina wheezes) Gastrointestinal: Yes: Normal Bowel Sounds, Soft Extremities: Yes: WNL Edema: No Labs: CBC, BMP Problem List - Problems (1) Dyspnea Code(s): R06.00 - DYSPNEA, UNSPECIFIED (2) Hyperlipemia Code(s): E78.5 - HYPERLIPIDEMIA, UNSPECIFIED (3) Hypertension Code(s): I10 - ESSENTIAL (PRIMARY) HYPERTENSION (4) Reactive airway disease Code(s): J45.909 - UNSPECIFIED ASTHMA, UNCOMPLICATED (5) Breast cancer, left Code(s): C50.912 - MALIGNANT NEOPLASM OF UNSPECIFIED SITE OF LEFT FEMALE BREAST Qualifiers: Breast location: upper outer quadrant of breast Patient gender: female Qualified Code(s): C50.412 - Malignant neoplasm of upper-outer quadrant of left female breast (6) Bronchospasm Code(s): J98.01 - ACUTE BRONCHOSPASM (7) Cough Code(s): R05 - COUGH (8) Asthmatic bronchitis Code(s): J45.909 - UNSPECIFIED ASTHMA, UNCOMPLICATED Assessment/Plan MP ASTHMATIC BRONCHITIS IMPROVING BREAST CA S/P LUMPECTOMY HTN HLD PLAN STEROID TAPER INHALED BROCHODILATORS INHALED STEROIDS MONITOR PEAK FLOW PFTS OUTPATIENT DR REINA Problem List - Problems (1) Dyspnea Code(s): R06.00 - DYSPNEA, UNSPECIFIED (2) Hyperlipemia Code(s): E78.5 - HYPERLIPIDEMIA, UNSPECIFIED (3) Hypertension Code(s): I10 - ESSENTIAL (PRIMARY) HYPERTENSION (4) Reactive airway disease Code(s): J45.909 - UNSPECIFIED ASTHMA, UNCOMPLICATED (5) Breast cancer, left Code(s): C50.912 - MALIGNANT NEOPLASM OF UNSPECIFIED SITE OF LEFT FEMALE BREAST Qualifiers: Breast location: upper outer quadrant of breast Patient gender: female Qualified Code(s): C50.412 - Malignant neoplasm of upper-outer quadrant of left female breast (6) Bronchospasm Code(s): J98.01 - ACUTE BRONCHOSPASM (7) Cough Code(s): R05 - COUGH (8) Asthmatic bronchitis Code(s): J45.909 - UNSPECIFIED ASTHMA, UNCOMPLICATED
--- NOTE | 2016-06-05 16:02 | PN ---
Progress Note, Physician - Current Medication List Current Medications: Active Medications Albuterol Sulfate (Ventolin 0.083% Nebulizer Soln -) 1 amp NEB Q3H PRN PRN Reason: SHORT OF BREATH/WHEEZING Last Admin: 06/05/16 14:30 Dose: 1 amp Amlodipine Besylate (Norvasc -) 10 mg PO DAILY [facility] Last Admin: 06/05/16 10:36 Dose: 10 mg Atorvastatin Calcium (Lipitor -) 10 mg PO HS [facility] Last Admin: 06/04/16 21:49 Dose: 10 mg Budesonide/Formoterol Fumarate (Symbicort 160/4.5mcg -) 2 puff IH BID [facility] Last Admin: 06/05/16 10:37 Dose: 2 puff Guaifenesin (Robitussin Dm -) 10 ml PO Q4H PRN PRN Reason: COUGH Last Admin: 06/05/16 10:39 Dose: 10 ml Heparin Sodium (Porcine) (Heparin -) 5,000 unit SQ TID [facility] Last Admin: 06/05/16 14:32 Dose: 5,000 unit Methylprednisolone Sodium Succinate (Solu-Medrol -) 40 mg IVPB BID [facility] Tiotropium [place] (Spiriva -) 1 puff IH DAILY [facility] Last Admin: 06/05/16 10:43 Dose: 1 puff - Objective Vital Signs: Vital Signs Temperature 98.2 F 06/05/16 15:11 Pulse Rate 92 H 06/05/16 15:11 Respiratory Rate 18 06/05/16 09:00 Blood Pressure 132/79 06/05/16 15:11 O2 Sat by Pulse Oximetry (%) 96 06/05/16 09:00 Constitutional: Yes: Well Nourished, No Distress, Calm Eyes: Yes: WNL, Conjunctiva Clear HENT: Yes: WNL, Atraumatic, Normocephalic Neck: Yes: WNL, Supple, Trachea Midline Cardiovascular: Yes: WNL, Regular Rate and Rhythm Respiratory: Yes: Wheezes (improved from yesterday) Gastrointestinal: Yes: WNL, Normal Bowel Sounds Musculoskeletal: Yes: WNL Extremities: Yes: WNL Edema: No Integumentary: Yes: WNL Neurological: Yes: WNL, Alert, Oriented ...Motor Strength: WNL Psychiatric: Yes: WNL Labs: CBC, BMP 06/03/16 08:05 06/03/16 08:05 INR, PTT INR 0.98 (0.82-1.09) 06/01/16 05:10 Impression/Plan Impression/Plan: 70 year old woman admitted for acute bronchospasm Bronchospasm -pt has no history of Asthma but recently was treated for bronchitis by pulm as an outpatient -has diffuse expiratory wheezing but is much improved from yesterday -CXR clear; CT chest shows no consolidations -solumedrol decreased from 40 Q6 to Q12 by pulm attending Visit type - Emergency Visit Emergency Visit: Yes ED Registration Date: 06/02/16 Care time: The patient presented to the Emergency Department on the above date and was hospitalized for further evaluation of their emergent condition. - New Patient This patient is new to me today: No - Critical Care Critical Care patient: No - Discharge Referral Referred to [facility] Med P.C.: No
[2016-06-05] MEDS: ATORVASTATIN CA 10 MG TABLET (FP) PO SCH (21:44)
[2016-06-06] MEDS: ALBUTEROL SO4 0.083% IH SOL 2.5 MG/3 ML VIAL.NEB. NEB PRN ×4 (00:32→21:25)
[2016-06-06] MEDS: HEPARIN NA (PORCINE) 5,000 UNITS/ML 1ML VIAL SQ SCH ×4 (06:38→21:40)
[2016-06-06] MEDS: TIOTROPIUM BROMIDE 18 MCG/INH (DEVICE W/ 5 CAPSULES) IH SCH (09:22)
[2016-06-06] MEDS: BUDESONIDE/FORMETEROL FUMARATE 160/4.5 mcg INHALER IH SCH ×2 (09:23→21:39)
[2016-06-06] MEDS: amLODIPine BESYLATE 10 MG TABLET (FP) PO SCH (09:23)
[2016-06-06] MEDS: methylPREDNISolone NA SUCC 40 MG/1 ML VIAL IVPB SCH ×2 (09:23→21:39)
--- NOTE | 2016-06-06 11:43 | PN ---
Progress Note (short form) - Note Progress Note: PULMONARY Breathing overall is better but still have dyspneic episodes especially at night. Last Vital Signs Temp Pulse Resp BP Pulse Ox 97.6 F 93 H 20 160/80 96 06/06/16 09:00 06/06/16 11:04 06/06/16 09:00 06/06/16 09:00 06/06/16 11:04 Gen: NAD at rest Heart: RRR Lung: scattered rhonchi, wheezes Abd: soft, nontender Ext: no edema CBC, BMP 06/03/16 08:05 06/03/16 08:05 Active Medications Albuterol Sulfate (Ventolin 0.083% Nebulizer Soln -) 1 amp NEB Q3H PRN PRN Reason: SHORT OF BREATH/WHEEZING Last Admin: 06/06/16 11:04 Dose: 1 amp Amlodipine Besylate (Norvasc -) 10 mg PO DAILY [facility] Last Admin: 06/06/16 09:23 Dose: 10 mg Atorvastatin Calcium (Lipitor -) 10 mg PO HS [facility] Last Admin: 06/05/16 21:44 Dose: 10 mg Budesonide/Formoterol Fumarate (Symbicort 160/4.5mcg -) 2 puff IH BID [facility] Last Admin: 06/06/16 09:23 Dose: 2 puff Guaifenesin (Robitussin Dm -) 10 ml PO Q4H PRN PRN Reason: COUGH Last Admin: 06/05/16 21:43 Dose: 10 ml Heparin Sodium (Porcine) (Heparin -) 5,000 unit SQ TID [facility] Last Admin: 06/06/16 06:40 Dose: Not Given Methylprednisolone Sodium Succinate (Solu-Medrol -) 40 mg IVPB BID [facility] Last Admin: 06/06/16 09:23 Dose: 40 mg Tiotropium [place] (Spiriva -) 1 puff IH DAILY [facility] Last Admin: 06/06/16 09:22 Dose: 1 puff A/P Acute Bronchospasm vs Asthmatic Bronchitis Breast Ca s/p Lumpectomy HTN Hyperlipidemia - continue medrol - inhaled bronchodilators - monitor peak flow - O2 as needed - will need outpt f/u - DVT prophylaxis
--- NOTE | 2016-06-06 12:42 | PN ---
Physical Exam: SUBJECTIVE: Patient seen and examined at bedside. Pt feels better overall today. Had episode of sob last night and this AM. Is able to ambulate w/o issue but has difficulty laying flat. Denies CP, N/V/F/C, abd pain. OBJECTIVE: Vital Signs Temperature 97.6 F 06/06/16 09:00 Pulse Rate 93 H 06/06/16 11:04 Respiratory Rate 20 06/06/16 09:00 Blood Pressure 160/80 06/06/16 09:00 O2 Sat by Pulse Oximetry (%) 96 06/06/16 11:04 GENERAL: The patient is awake, alert, and fully oriented, in no acute distress. HEAD: Normal with no signs of trauma. EYES: PERRL, extraocular movements intact, sclera anicteric, conjunctiva clear. No ptosis. ENT: Ears normal, nares patent, oropharynx clear without exudates, moist mucous membranes. NECK: Trachea midline, full range of motion, supple. LUNGS:B/L wheezing, improved compared to previously. HEART: Regular rate and rhythm, S1, S2 without murmur, rub or gallop. ABDOMEN: Soft, nontender, nondistended, normoactive bowel sounds, no guarding, no rebound, no hepatosplenomegaly, no masses. EXTREMITIES: 2+ pulses, warm, well-perfused, no edema. NEUROLOGICAL: Normal speech, gait not observed. PSYCH: Normal mood, normal affect. SKIN: Warm, dry, normal turgor, no rashes or lesions noted Active Medications Generic Name Dose Route Start Last Admin Trade Name Freq PRN Reason Stop Dose Admin Albuterol Sulfate 1 amp 06/03/16 12:44 06/06/16 11:04 Ventolin 0.083% Nebulizer Soln - NEB 1 amp Q3H PRN Administration SHORT OF BREATH/WHEEZING Amlodipine Besylate 10 mg 06/01/16 14:00 06/06/16 09:23 Norvasc - PO 10 mg DAILY [facility] Administration Atorvastatin Calcium 10 mg 06/01/16 22:00 06/05/16 21:44 Lipitor - PO 10 mg HS [facility] Administration Budesonide/Formoterol Fumarate 2 puff 06/02/16 12:00 06/06/16 09:23 Symbicort 160/4.5mcg - IH 2 puff BID [facility] Administration Guaifenesin 10 ml 06/01/16 14:43 06/05/16 21:43 Robitussin Dm - PO 10 ml Q4H PRN Administration COUGH Heparin Sodium (Porcine) 5,000 unit 06/02/16 22:00 06/06/16 06:40 Heparin - SQ Not Given TID [facility] Methylprednisolone Sodium Succinate 40 mg 06/05/16 22:00 06/06/16 09:23 Solu-Medrol - IVPB 40 mg BID [facility] Administration Tiotropium [place] 1 puff 06/02/16 12:00 06/06/16 09:22 Spiriva - IH 1 puff DAILY [facility] Administration ASSESSMENT/PLAN: 70 y/o F w/PMH of HTN, HLD, L breast ca s/p lumpectomy 05/16/16 presented to ER with progressively worsening cough x 2 weeks. Admitted for asthmatic bronchitis. -Asthmatic bronchitis vs bronchospasms -c/w solu-medrol iv 40mg bid -possibly change to PO tomorrow -Wheezing is improved -alb nebs q3h prn, spiriva, symbicort -Cough -robitussin dm 10 ml po q4h prn -HTN -c/w norvasc 10 mg po qd -HLD -c/w lipitor 10 mg po qhs -DVT ppx -Heparin tid -ambulation encouraged -Dispo: -can be discharged soon if pt continues to improve. Problem List - Problems (1) Asthmatic bronchitis Code(s): J45.909 - UNSPECIFIED ASTHMA, UNCOMPLICATED (2) Dyspnea Code(s): R06.00 - DYSPNEA, UNSPECIFIED (3) Hyperlipemia Code(s): E78.5 - HYPERLIPIDEMIA, UNSPECIFIED (4) Hypertension Code(s): I10 - ESSENTIAL (PRIMARY) HYPERTENSION (5) Reactive airway disease Code(s): J45.909 - UNSPECIFIED ASTHMA, UNCOMPLICATED (6) Wheezing Code(s): R06.2 - WHEEZING (7) Breast cancer, left Code(s): C50.912 - MALIGNANT NEOPLASM OF UNSPECIFIED SITE OF LEFT FEMALE BREAST Qualifiers: Breast location: upper outer quadrant of breast Patient gender: female Qualified Code(s): C50.412 - Malignant neoplasm of upper-outer quadrant of left female breast (8) Bronchospasm Code(s): J98.01 - ACUTE BRONCHOSPASM (9) Cough Code(s): R05 - COUGH Visit type - Emergency Visit Emergency Visit: Yes ED Registration Date: 06/02/16 Care time: The patient presented to the Emergency Department on the above date and was hospitalized for further evaluation of their emergent condition. - New Patient This patient is new to me today: Yes Date on this admission: 06/06/16 - Critical Care Critical Care patient: No
--- NOTE | 2016-06-06 14:51 | PN ---
Teaching Attending Note Name of Resident: Alvarado Diaz ATTENDING PHYSICIAN STATEMENT I saw and evaluated the patient. I reviewed the resident's note and discussed the case with the resident. I agree with the resident's findings and plan as documented. SUBJECTIVE:continues to have dyspnic episodes primarily at night assoc with non productive cough. no symptoms on exertion. denies CP, fever, chills, N/V/C/D, or orthopnea. denies hx of tobacco OBJECTIVE: Last Vital Signs Temp Pulse Resp BP Pulse Ox 97.6 F 93 H 20 160/80 96 06/06/16 09:00 06/06/16 11:04 06/06/16 09:00 06/06/16 09:00 06/06/16 11:04 General NAD CV S1 S2 RRR no murmur/rub/gallops no JVD Extremities no pedal edema ASSESSMENT AND PLAN: 70yo F wtih PMH HTN, dyslipidemia, and L breast ca presented to the ER and was admitted for further evaluation of their emergent condition 1. Acute bronchospasms vs asthmatic bronchitis- conitnues to have significant episodes at night. no signs of volume overload to suggest as cause. no previous episodes or hospitalizations. received 3 doses of solumedrol 40mg yesterday as well as nebs x6. will cont BID dosing for now will conversion to po in the AM if improved. on inhalers would need to be d/c on. pulm follow up as outpatient. PFT testing 2. DVT ppx- hep sq 3. d/c planning for am if clinically improved and can transition steroids to po.
[2016-06-06] MEDS: guaiFENesin/D-METHORPHAN HB 10 ML UNIT-DOSE CUPS PO PRN (16:39)
[2016-06-06] MEDS: ATORVASTATIN CA 10 MG TABLET (FP) PO SCH (21:40)
[2016-06-07] MEDS: ALBUTEROL SO4 0.083% IH SOL 2.5 MG/3 ML VIAL.NEB. NEB PRN ×3 (00:52→12:49)
[2016-06-07] MEDS: HEPARIN NA (PORCINE) 5,000 UNITS/ML 1ML VIAL SQ SCH (06:44)
[2016-06-07] MEDS ORDERED: PT OWN MED DRAWER 7, Y5N ONE (09:21)
[2016-06-07] MEDS: amLODIPine BESYLATE 10 MG TABLET (FP) PO SCH (09:24)
[2016-06-07] MEDS: TIOTROPIUM BROMIDE 18 MCG/INH (DEVICE W/ 5 CAPSULES) IH SCH (09:25)
[2016-06-07] MEDS ORDERED: predniSONE 20 MG TABLET (UD) PO SCH (10:00)
[2016-06-07 10:33] VITALS: BP 158/94; PULSE 94
--- NOTE | 2016-06-07 11:11 | DS ---
Physical Exam: SUBJECTIVE: Patient seen and examined, breathing has improved, wheezing has decreased. Denies chest pain, sob, [place], fever, chills, GI or complaints. OBJECTIVE: Vital Signs Period Temp Pulse Resp BP Sys/Hunter Pulse Ox Last 24 Hr 97.8 F-98.5 F 84-94 18-20 128-158/72-94 96-96 PHYSICAL EXAM GENERAL: The patient is awake, alert, and fully oriented, in no acute distress. HEAD: Normal with no signs of trauma. EYES: PERRL, extraocular movements intact, sclera anicteric, conjunctiva clear. NECK: Trachea midline, full range of motion, supple. LUNGS: Decreased breath sounds bilaterally, no wheezes, no crackles, no accessory muscle use. HEART: Regular rate and rhythm, S1, S2, systolic murmur II/ area of aorta, ABDOMEN: Soft, nontender, nondistended, normoactive bowel sounds, no guarding, no rebound, no hepatosplenomegaly, no masses. EXTREMITIES: 2+ pulses, warm, well-perfused, no edema. NEUROLOGICAL: Cranial nerves II through XII grossly intact. Normal speech, gait not observed. PSYCH: Normal mood, normal affect. SKIN: Warm, dry, normal turgor, no rashes or lesions noted. LABS CBC, BMP 06/03/16 08:05 06/03/16 08:05 IMAGING: Chest x ray increased interstitial lung markings; no effusions CTA chest negative for PE; positive chronic lung finding with atelectasis Current Medications Generic Name Dose Route Start Last Admin Trade Name Freq PRN Reason Stop Dose Admin Albuterol Sulfate 1 amp 06/03/16 12:44 06/07/16 04:05 Ventolin 0.083% Nebulizer Soln - NEB 1 amp Q3H PRN Administration SHORT OF BREATH/WHEEZING Amlodipine Besylate 10 mg 06/01/16 14:00 06/07/16 09:24 Norvasc - PO 10 mg DAILY [facility] Administration Atorvastatin [place] 10 mg 06/01/16 22:00 06/06/16 21:40 Lipitor - PO 10 mg HS [facility] Administration Budesonide/Formoterol Fumarate 2 puff 06/02/16 12:00 06/06/16 21:39 Symbicort 160/4.5mcg - IH 2 puff BID [facility] Administration Guaifenesin 10 ml 06/01/16 14:43 06/06/16 16:39 Robitussin Dm - PO 10 ml Q4H PRN Administration COUGH Heparin Sodium (Porcine) 5,000 unit 06/02/16 22:00 06/07/16 06:44 Heparin - SQ Not Given TID [facility] Prednisone 40 mg 06/08/16 10:00 Deltasone - PO DAILY [facility] Tiotropium [place] 1 puff 06/02/16 12:00 06/07/16 09:25 Spiriva - IH 1 puff DAILY [facility] Administration HOSPITAL COURSE: Date of Admission:06/02/16 Date of Discharge: 06/07/16 This is a 70 year old female with a past medical history of HTN, HLD, breast CA , s/p right lumpectomy on 05/16/2016, who presented to the ER with worsening shortness of breath and wheezing that failed outpatient treatment with antibiotics. Patient was treated for acute bronchospasm, secondary to asthmatic bronchitis with IV steroids and bronchodilators, indicated above. She was worked up for pulmonary embolism, CTA negative. Imaging did show chronic lung findings, including atelectasis. 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 Patient is being discharged with tapered dose of prednisone, bronchodilators and protonix for GI prophylaxis. She is recommended to get outpatient pulmonary function testing with Dr. Vincent. Minutes to complete discharge: 35 Discharge Summary Reason For Visit: DYSPNEA ON EXERTION,REACTIVE AIRWAY DIS,WHEEZING Current Active Problems Asthmatic bronchitis (Acute) Bronchitis (Acute) Reactive airway disease (Acute) Hyperlipemia (Chronic) Hypertension (Chronic) Condition: Improved - Instructions Diet, Activity, Other Instructions: Ms Motley, you have been treated for an acute bronchospasm, which is an abnormal contraction of the small muscle in your lungs, this results in narrowing or obstruction of your airway. This could be due to asthma or bronchitis. We would like you to continue with your recommended inhaler as needed. You have been placed on steroids to help decrease the inflammation, which you will taper down the dose every three days. 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 You can take 20mg daily while you are taking the prednisone. Please follow up with you r primary, Dr. Stevenson with in one week to evaluate your pulmonary condition further. If you experience any worsening of symptoms, trouble breathing please return to the emergency room. Referrals: Felix Stevenson MD [Primary Care Provider] - Disposition: HOME - Home Medications Comprehensive Discharge Medication List: Ambulatory Orders Atorvastatin Ca [Lipitor] 10 mg PO DAILY 10/10/14 Amlodipine Besylate 10 mg PO DAILY 05/10/16 Albuterol 0.083% Nebulizer [place] [Ventolin 0.083% Nebulizer Soln -] 1 amp NEB Q3H PRN #25 vial 06/07/16 Budesonide/Formeterol Fumarate [SYMBICORT 160/4.5mcg -] 2 puff IH BID #1 inhaler 06/07/16 Guaifenesin Dm [Robitussin Dm -] 10 ml PO Q4H PRN #1 bottle 06/07/16 Prednisone 10 mg PO DAILY #36 tablet 06/07/16 Tiotropium [place] [Spiriva] 1 puff IH DAILY #1 inh 06/07/16 Problem List - Problems (1) Reactive airway disease Code(s): J45.909 - UNSPECIFIED ASTHMA, UNCOMPLICATED (2) Wheezing Code(s): R06.2 - WHEEZING (3) Bronchospasm Code(s): J98.01 - ACUTE BRONCHOSPASM (4) Hypertension Code(s): I10 - ESSENTIAL (PRIMARY) HYPERTENSION (5) Hyperlipemia Code(s): E78.5 - HYPERLIPIDEMIA, UNSPECIFIED This patient is new to me today: No Emergency Visit: Yes ED Registration Date: 06/02/16 Care time: The patient presented to the Emergency Department on the above date and was hospitalized for further evaluation of their emergent condition. Critical Care patient: No - Discharge Referral Referred to [facility] Med P.C.: No
--- NOTE | 2016-06-07 13:13 | PN ---
Progress Note (short form) - Note Progress Note: PULMONARY VSS/AFEBRILE SUBJECTIVE IMPROVEMENT ANICTERIC CLEAR LUNG [place]MON S1S2 BS+ NO EDEMA LABS/MEDS/NOTES/IMAGING REVIEWED TAPER STEROIDS OUTPATIENT FRANCESCO/LABA/LAMA/ICS Elsie GUERRA MD
--- NOTE | 2016-06-07 13:14 | PN ---
Teaching Attending Note Name of Resident: Lisa Alvarado ATTENDING PHYSICIAN STATEMENT I saw and evaluated the patient. I reviewed the resident's note and discussed the case with the resident. I agree with the resident's findings and plan as documented. SUBJECTIVE:currently asymptomatic. reports no dsypnea in the evening. tolerating walking the halls without difficulty. denies CP, SOB,fever, chills, cough, N/V/C?D OBJECTIVE: Last Vital Signs Temp Pulse Resp BP Pulse Ox 98.3 F 94 H 20 158/94 96 06/07/16 09:00 06/07/16 09:00 06/07/16 09:00 06/07/16 09:00 06/07/16 09:00 General NAD CV S1 S2 RRR no murmur/rub/gallops no JVD Lungs CTA B/L no wheezing/rales/rhonchi. good inspiratory effort Extremities no pedal edema ASSESSMENT AND PLAN: 70yo F wtih PMH HTN, dyslipidemia, and L breast ca presented to the ER and was admitted for further evaluation of their emergent condition 1. Acute bronchospasms vs asthmatic bronchitis- significantly improved. will give slow steroid taper, decrease by 10mg every 3 days. PPI during this course due to risk of peptic ulcer. explained risk to patient while on steroids. cont inhalers. nebs prn. pulm follow up as outpatient. PFT testing 2. HTN- controlled. cont norvasc 3. dyslipidemia- statin 4. DVT ppx- hep sq 5. d/c home with pulm follow up. counseled patient. verbalized understanding and agreed with plan.
[2016-06-07 14:16] VITALS: TEMP 98.2
[2016-06-08] MEDS ORDERED: predniSONE 20 MG TABLET (UD) PO SCH (10:00)
== END 2016-06-07 14:59 | disposition home or self-care (01) | DRG 202 ==
LOC: JER 04:06 → JERBED 09:37 → UNDOADMOB 09:37 → INTOOBSV 09:37 → OBSVTOIN 09:37 → J6S 12:20 → JERBED 12:20 → J6S 13:37 → JERBED 13:37 → OBSVTOIN 06-02 15:16
PROVIDERS: ADMIT Specialist; ATTEND Internal Medicine
DX: J45.909 Unspecified asthma, uncomplicated (principal); J98.11 Atelectasis; I10 Essential (primary) hypertension; E78.5 Hyperlipidemia, unspecified; C50.412 Malignant neoplasm of upper-outer quadrant of left female breast; Z77.22 Contact with and (suspected) exposure to environmental tobacco smoke (acute) (chronic); D72.829 Elevated white blood cell count, unspecified
CPT/HCPCS: 36415; 71020-TC; 71275-TC; 80053; 83880; 85025; 85610; 86850; 86900; 86901; 87070; 87205; 94150; 94640; 99285-25; G0378; J1644

== ENCOUNTER 2016-06-13 07:35 | Day surgery (SDC) | payer OTHER ==
[2016-06-12 12:21] VITALS: BMI 31.9
[2016-06-13] MEDS ORDERED: hydrOXYzine HCL 100 MG/2 ML VIAL IM PRN (10:59)
[2016-06-13] MEDS ORDERED: ONDANSETRON 4 MG/2 ML VIAL IVPB PRN (10:59)
[2016-06-13] MEDS ORDERED: ACETAMINOPHEN 325 MG TABLET (FP) PO PRN (10:59)
[2016-06-13] MEDS ORDERED: DEXTROSE 5%-0.45% SALINE 1,000 ML IV SCH (11:00)
[2016-06-13] MEDS ORDERED: LACTATED RINGERS SOLUTION 1,000 ML IV SCH (11:15)
[2016-06-13] MEDS ORDERED: MEPERIDINE HCL CARPU-JECT 50 MG/1 ML DISP.SYRIN IM PRN (11:32)
[2016-06-13] MEDS ORDERED: ONDANSETRON 4 MG/2 ML VIAL IVPUSH PRN (11:35)
[2016-06-13] MEDS ORDERED: ZOLPIDEM TARTRATE 5 MG TABLET PO PRN (11:35)
[2016-06-13 16:20] LABS: MCH 27.2 pg (25.7-33.7); MEAN CELL VOLUME 82.5 fl (80-96); MEAN PLT VOLUME 7.5 fl (7.5-11.1); PLATELET COUNT 318 K/MM3 (134-434); RDW 13.8 % (11.6-15.6); WHITE BLOOD COUNT 13.9 K/mm3 (4.0-10.0)
[2016-06-13] MEDS: CEFAZOLIN 1 GM/D5W 50 ML IVPB SCH (18:06)
[2016-06-13] MEDS ORDERED: HEPARIN NA (PORCINE) 5,000 UNITS/ML 1ML VIAL SQ SCH (22:00)
[2016-06-14] MEDS: CEFAZOLIN 1 GM/D5W 50 ML IVPB SCH (01:04)
[2016-06-14 06:07] VITALS: BP 123/83; PULSE 84; TEMP 98.4
--- NOTE | 2016-06-14 06:42 | OP ---
DATE OF OPERATION: 06/13/2016 PREOPERATIVE DIAGNOSIS: Left breast cancer with left axillary carola metastasis. POSTOPERATIVE DIAGNOSIS: Left breast cancer with left axillary carola metastasis. PROCEDURE: Left axillary lymph node dissection. ANESTHESIA: General intubated. ATTENDING SURGEON: Dana Saucedo MD SKULL CHOPPER: LORETTA Wakefield ESTIMATED BLOOD LOSS: Minimal. COMPLICATIONS: None. DESCRIPTION OF PROCEDURE: Patient was made aware of the risks and benefits of the procedure and consented. She was placed in the supine position, and after general anesthesia was induced, the patient was intubated. The operative site was prepped and draped in the usual sterile fashion. The prior axillary incision was then opened up sharply, and using electrocautery, tissues were dissected to the lateral part of the pectoralis major muscle extending down to the clavipectoral fascia to release the pectoralis minor muscle. Laterally, tissues were dissected down to the latissimus dorsi, and at the apex of the dissection, the axillary vein was noted. Dissection along the chest wall revealed a long thoracic nerve, which was dissected superior and inferior along its length retracting it medially. In addition, thoracodorsal trunk was identified and retracted laterally. Tissues between the two were bluntly and sharply dissected free using electrocautery, sharp dissection, and hemoclips. The axillary contents were then submitted for permanent sectioning. Wound was copiously irrigated with normal saline. Hemostasis was maintained by electrocautery. Palpation of level 3 lymph nodes revealed no suspicious lymph nodes. Through an inferior stab wound, a No. 10 Manny-Durant drain was placed and sutured to the skin with 2-0 silk. Skin was then closed with interrupted 3-0 Vicryl followed by a running subcuticular 4-0 Monocryl. Steri-Strips and a sterile bandage were then applied, and the patient, having tolerated the procedure, was transferred to the recovery room in excellent condition. DANA SAUCEDO M.D. [id number]
[2016-06-14 08:51] LABS: MCH 27.6 pg (25.7-33.7); MCHC 33.5 g/dl (32.0-36.0); MEAN CELL VOLUME 82.5 fl (80-96); MEAN PLT VOLUME 7.7 fl (7.5-11.1); PLATELET COUNT 292 K/MM3 (134-434); RDW 13.7 % (11.6-15.6)
[2016-06-14] MEDS ORDERED: CEFAZOLIN 1 GM/D5W 50 ML IVPB SCH (10:00)
--- NOTE | 2016-06-15 14:35 | PATH ---
Surgical Pathology Report Patient Name: SHERRIE SCOTT [facility]. Rec. #: [id number] /Age/Gender: 1945 (Age: 70) / F Account: [id number] Location: [facility] AMBULATORY Taken: 06/13/2016 Received: 06/13/2016 Reported: 06/15/2016 Physicians: Oscar Saucedo M.D. Specimen(s) Received LEFT AXILLARY CONTENTS Clinical History None given Final Diagnosis LYMPH NODES, LEFT AXILLARY, DISSECTION: METASTATIC CARCINOMA PRESENT IN 2 OF 10 LYMPH NODES (2/10), WITH LARGER METASTATIC FOCUS MEASURING 1.9 CM IN GREATEST DIMENSION. PERINODAL INTRALYMPHATIC TUMOR EMBOLI ARE PRESENT, BUT NO EXTRANODAL EXTENSION IDENTIFIED IN THE CURRENT SPECIMEN. CHANGES CONSISTENT WITH PRIOR EXCISION SITE PRESENT. Comment: Also see prior specimens [id number] and [id number]. The stage remains pT1c pN1a. Electronically Signed Malvin Lacy M.D. Gross Description Received in formalin, labeled "left axillary contents," is an 8.5 x 7.8 x 1.2 cm aggregate of yellow, lobulated adipose tissue. Sectioning reveals multiple doshi, irregular lymph nodes. The lymph nodes are entirely submitted in 17 cassettes as follows: 1-one whole lymph node; 2-one whole lymph node; 3-4-one whole bisected lymph node; 5-6-one whole bisected lymph node; 7-13-one whole bisected lymph node each; 14-17-one whole serially sectioned lymph node. Time to formalin fixation: 5 minutes Total formalin fixation time: Approximately 31 hours. 06/14/201606/14/2016
== END 2016-06-14 11:14 | disposition home or self-care (01) ==
LOC: FASU 07:35 → EDSTATUS 08:30 → FM/S 12:37 → FASU 06-14 09:21 → FM/S 06-14 09:21 → FASU 06-14 11:14
PROVIDERS: ATTEND Surgery Surgical Oncology
PROC: 07B60ZX Excision of Left Axillary Lymphatic, Open Approach, Diagnostic (ICD-10-PCS; principal; 2016-06-13 09:00)
DX: C50.412 Malignant neoplasm of upper-outer quadrant of left female breast (principal); C77.3 Secondary and unspecified malignant neoplasm of axilla and upper limb lymph nodes
CPT/HCPCS: 36415; 85027; 88307-TC; 94760; J1644

== ENCOUNTER 2017-04-30 10:01 | Emergency (ER) | payer OTHER ==
[2017-04-30 10:21] VITALS: BP 121/61; PULSE 86; TEMP 99.4; BMI 30.5
[2017-04-30 11:21] LABS: URINE APPEARANCE SLCLOUDY; URINE BILIRUBIN NEGATIVE (NEGATIVE); URINE BLOOD NEGATIVE (NEGATIVE); URINE COLOR YELLOW; URINE GLUCOSE (UA) NEGATIVE (NEGATIVE); URINE KETONE NEGATIVE (NEGATIVE); URINE NITRITE NEGATIVE (NEGATIVE); URINE PROTEIN NEGATIVE (NEGATIVE); URINE UROBILINOGEN NEGATIVE mg/dL (0.2-1.0)
[2017-04-30 11:32] LABS: URINE LEUK ESTERASE 3+ (NEGATIVE)
[2017-04-30 11:34] LABS: EPI CELLS RARE /HPF (FEW); URINE BACTERIA MODERATE /hpf (NONE SEEN); URINE HYALINE CAST 2 /lpf; URINE MUCUS RARE
--- NOTE | 2017-04-30 12:07 | PDOC ---
History of Present Illness - General Chief Complaint: Cold Symptoms Stated Complaint: DIFFICULTY BREATHING Time Seen by Provider: 04/30/17 10:32 History Source: Patient Exam Limitations: No Limitations - History of Present Illness Initial Comments: 04/30/17 12:04 Patient is a [71-year-old female with history of hypertension, high cholesterol and breast CA. Patient presents for evaluation of generalized pain, cough, tactile fever 2 days ago with increased pain to right lower back. Patient reports being treated for upper respiratory infection with azithromycin by Dr. Virginia Bean 1 month prior thinks that she has either the same or flulike symptoms. Denies any urinary symptoms. No nausea vomiting or diarrhea denies any chest pain or shortness of breath currently afebrile.] Past Medical History: [Denies]. Allergies: No known allergies Medications: [See medication list] Family History: Non-contributory Social History: Denies smoking, alcohol use, or IVDU Vital signs on arrival are [notable for temperature of 99.] Review of Systems GENERAL/CONSTITUTIONAL: [No fever or chills. No weakness. No weight change.] HEAD, EYES, EARS, NOSE AND THROAT: [No change in vision. No ear pain or discharge. No sore throat. ] CARDIOVASCULAR: [No chest pain or shortness of breath.] RESPIRATORY: [No cough, wheezing, or hemoptysis.] GASTROINTESTINAL: [No nausea, vomiting, diarrhea or constipation. No rectal bleeding.] GENITOURINARY: [No dysuria, frequency, or change in urination.] MUSCULOSKELETAL: [No joint or muscle swelling or pain. No neck or back pain.] SKIN AND BREASTS: [No rash or easy bruising.] NEUROLOGIC: [No headache, vertigo, loss of consciousness, or loss of sensation.] PSYCHIATRIC: [No depression or anxiety.] ENDOCRINE: [No increased thirst. No abnormal weight change.] HEMATOLOGIC/LYMPHATIC: [No anemia, easy bleeding, or history of blood clots.] ALLERGIC/IMMUNOLOGIC: [No hives or skin allergy. No latex allergy.] Physical Exam: GENERAL: [The patient is awake, alert, and fully oriented, in no acute distress. ] HEAD: [Normal with no signs of trauma.] EYES: [Pupils equal, round and reactive to light, extraocular movements intact, sclera anicteric, conjunctiva clear.] ENT: [Ears normal, nares patent, oropharynx clear without exudates. Moist mucous membranes. No uvula deviation] NECK: [Normal range of motion, supple without lymphadenopathy, JVD, or masses.] LUNGS: [Breath sounds equal, clear to auscultation bilaterally. No wheezes, and no crackles.] HEART: [Regular rate and rhythm, normal S1 and S2 without murmur, rub or gallop. ] ABDOMEN: [Soft, nontender, normoactive bowel sounds. No guarding, no rebound. No masses. No bruising or abrasions] RECTAL : [Guaiac negative, normal rectal tone.] MUSCULOSKELETAL: [Normal range of motion, no edema. No clubbing or cyanosis. No cords, erythema, or tenderness. No CVA Tenderness with fist palpation. There is pain to right lateral lower back.] NEUROLOGICAL: [Cranial nerves II through XII grossly intact. Normal speech, normal gait.] PSYCH: [Normal mood, normal affect.] SKIN: [Warm, Dry, normal turgor, no rashes or lesions noted.] Past History - Past Medical History Allergies/Adverse Reactions: Allergies Allergy/AdvReac Type Severity Reaction Status Date / Time aspirin Allergy Severe Difficulty Verified 04/30/17 10:16 Breathing codeine [Codeine] Allergy Severe Difficulty Verified 04/30/17 10:16 Breathing Home Medications: Ambulatory Orders Atorvastatin Ca [Lipitor] 40 mg PO DAILY 10/10/14 Amlodipine Besylate 10 mg PO DAILY 05/10/16 Anastrozole [Arimidex -] 1 mg PO DAILY 04/30/17 Cephalexin Monohydrate [Keflex -] 500 mg PO Q8H #30 capsule 04/30/17 Anemia: No Asthma: No Cancer: Yes (LEFT breast) Cardiac Disorders: No CVA: No COPD: No CHF: No DVT: No Dementia: No Diabetes: No GI Disorders: No Disorders: No HTN: Yes Hypercholesterolemia: Yes Liver Disease: No Seizures: No Thyroid Disease: No - Surgical History Abdominal Surgery: No (d & c) Appendectomy: No Cardiac Surgery: No Cholecystectomy: No Lung Surgery: No Neurologic Surgery: No Orthopedic Surgery: No - Immunization History Immunization Up to Date: Yes - Suicide/Smoking/Psychosocial Hx Smoking Status: No Smoking History: Never smoked Have you smoked in the past 12 months: No Number of Cigarettes Smoked Daily: 0 Information on smoking cessation initiated: No Hx Alcohol Use: No Drug/Substance Use Hx: No Substance Use Type: None Hx Substance Use Treatment: No Respiratory Specific PMHX - Complaint Specific PMHX Bronchitis: Yes *Physical Exam - Vital Signs Last Vital Signs Temp Pulse Resp BP Pulse Ox 99.4 F 86 20 121/61 95 04/30/17 10:17 04/30/17 10:17 04/30/17 10:17 04/30/17 10:17 04/30/17 10:17 ED Treatment Course - LABORATORY CBC & Chemistry Diagram: 04/30/17 11:59 04/30/17 11:59 - ADDITIONAL ORDERS Additional order review: Laboratory Results 04/30/17 10:47 Urine Color Yellow Urine Appearance Slcloudy Urine pH 5.0 Ur Specific Motley 1.024 Urine Protein Negative Urine Glucose (UA) Negative Urine Ketones Negative Urine Blood Negative Urine Nitrite Negative Urine Bilirubin Negative Urine Urobilinogen Negative Ur Leukocyte Esterase 3+ H - RADIOLOGY Radiology Studies Ordered: Category Date Time Status SPIRAL- RENAL-STONE CT [CT] Stat CT Scan 04/30/17 11:51 Ordered CHEST PA & LAT [RAD] Stat Radiology 04/30/17 10:43 Completed Medical Decision Making - Medical Decision Making 04/30/17 12:06 A/P: Patient here for evaluation of tactile fever, lower back pain cough and influenza-type illness for 5 days. Received patient during examination lungs were clear, no nasal congestion or cough noted during examination patient does have lower back pain will send urinalysis and chest x-ray to rule out pneumonia. Chest x-rays negative for acute cardiopulmonary disease. Urinalysis with +3 leukoesterase awaiting microscopic We will send CBC, CMP, urine culture, x-ray rule out occlusive renal stone 04/30/17 19:57 CT scan is negative for acute intra-abdominal pathology no renal stone. I will discharge patient home on Keflex, dose given while in emergency room Tylenol for pain and follow-up with PMD. If any increased pain, fever, nausea vomiting, or any other concerns will need to immediately return to ER. I have attempted to call. Dr. Stevenson to discuss patient's case I paged twice no answer. Patient will follow-up with Adele *DC/Admit/Observation/Transfer Diagnosis at time of Disposition: Urinary tract infection Qualifiers: Urinary tract infection type: acute cystitis Hematuria presence: with hematuria Qualified Code(s): N30.01 - Acute cystitis with hematuria - Discharge Dispostion Disposition: HOME Condition at time of disposition: Good Admit: No - Prescriptions Prescriptions: Cephalexin Monohydrate [Keflex -] 500 mg PO Q8H #30 capsule - Referrals Referrals: Felix Stevenson MD [Primary Care Provider] - - Patient Instructions Printed Discharge Instructions: DI for Urinary Tract Infection (UTI) Additional Instructions: Increase fluids to prevent dehydration Tylenol for pain Antibiotics as ordered Please followup with primary care Dr. in 3 days if symptoms persist Return to emergency department any increased cough, fever, inability to drink or other concerns - Post Discharge Activity
[2017-04-30 12:09] LABS: BASO % 0.8 % (0-2.0); EOS % 0.3 % (0-4.5); HEMATOCRIT 39.2 % (32.4-45.2); HEMOGLOBIN 12.7 GM/dL (10.7-15.3); LYMPH % 15.6 % (8-40); MCH 26.5 pg (25.7-33.7); MCHC 32.3 g/dl (32.0-36.0); MEAN CELL VOLUME 81.9 fl (80-96); MEAN PLT VOLUME 6.6 fl (7.5-11.1); MONO % 19.9 % (3.8-10.2); NEUT % 63.4 % (42.8-82.8); PLATELET COUNT 221 K/MM3 (134-434); RBC 4.79 M/mm3 (3.60-5.2); RDW 16.1 % (11.6-15.6); WHITE BLOOD COUNT 4.3 K/mm3 (4.0-10.0)
[2017-04-30 12:33] LABS: ALBUMIN 3.5 g/dl (3.4-5.0); ANION GAP 8 (8-16); BILIRUBIN,TOTAL 0.2 mg/dL (0.2-1.0); BLOOD UREA NITROGEN 10 mg/dL (7-18); CALCIUM 7.7 mg/dL (8.5-10.1); CHLORIDE 101 mmol/L (98-107); CO2 29 mmol/L (21-32); CREATININE 0.8 mg/dL (0.55-1.02); GLUCOSE,RANDOM 93 mg/dL (74-106); POTASSIUM 3.7 mmol/L (3.5-5.1); SGOT/AST 30 U/L (15-37); SGPT/ALT 28 U/L (12-78); SODIUM 138 mmol/L (136-145); TOT PROT 6.7 g/dl (6.4-8.2)
[2017-04-30 12:34] LABS: ALK PHOS 76 U/L (45-117)
[2017-04-30] MEDS ORDERED: ACETAMINOPHEN 500 MG TABLET (FP) PO ONE (13:08)
[2017-04-30] MEDS ORDERED: ACETAMINOPHEN 500 MG TABLET (FP) ONE (13:10)
[2017-04-30] MEDS ORDERED: CEPHALEXIN MONOHYDRATE 500 MG CAPSULE (UD) PO ONE (13:11)
[2017-04-30] MEDS ORDERED: CEPHALEXIN MONOHYDRATE 500 MG CAPSULE (UD) ONE (13:12)
== END 2017-04-30 14:53 | disposition home or self-care (01) ==
LOC: JERFT 10:01
DX: N30.01 Acute cystitis with hematuria (principal); I10 Essential (primary) hypertension; E78.00 Pure hypercholesterolemia, unspecified; Z85.3 Personal history of malignant neoplasm of breast
CPT/HCPCS: 36415; 71046-TC; 74176; 80053; 81003; 81015; 85025; 87086; 87186; 99282-25

== ENCOUNTER 2018-06-18 08:28 | Day surgery (SDC) | payer OTHER, MEDICARE ==
[2018-06-17 15:28] VITALS: BMI 32.4
[2018-06-18 09:55] VITALS: TEMP 97.5
[2018-06-18 10:50] VITALS: BP 108/58; PULSE 70
== END 2018-06-18 10:35 | disposition home or self-care (01) ==
LOC: JASU-ENDO 08:28
PROVIDERS: ATTEND Internal Medicine Gastroenterology
PROC: 0DJD8ZZ Inspection of Lower Intestinal Tract, Via Natural or Artificial Opening Endoscopic (ICD-10-PCS; principal; 2018-06-18 09:00)
DX: Z12.11 Encounter for screening for malignant neoplasm of colon (principal); K64.8 Other hemorrhoids

== ENCOUNTER 2018-08-26 09:49 | Emergency (ER) | payer OTHER, MEDICARE ==
[2018-08-26 10:09] VITALS: BMI 32.4
[2018-08-26] MEDS ORDERED: predniSONE 20 MG TABLET (UD) PO ONE (10:41)
[2018-08-26] MEDS ORDERED: ALBUTEROL SO4 2.5/IPRATROPIUM 0.5 INH SOL 3 ML VIAL.NEB. NEB ONE ×2 (10:41→10:58)
[2018-08-26] MEDS ORDERED: predniSONE 20 MG TABLET (UD) ONE (10:57)
[2018-08-26 10:58] LABS: VENOUS PC02 42.2 mmHg (41-51); VENOUS PH 7.41 (7.31-7.41); VENOUS PO2 41.2 mmHg (30-40)
[2018-08-26 11:00] LABS: BASO % 0.8 % (0-2.0); EOS % 3.3 % (0-4.5); HEMATOCRIT 41.8 % (32.4-45.2); HEMOGLOBIN 13.7 GM/dL (10.7-15.3); LYMPH % 14.7 % (8-40); MCH 26.8 pg (25.7-33.7); MCHC 32.7 g/dl (32.0-36.0); MEAN PLT VOLUME 6.8 fl (7.5-11.1); MONO % 5.8 % (3.8-10.2); NEUT % 75.4 % (42.8-82.8); PLATELET COUNT 326 K/MM3 (134-434); RBC 5.09 M/mm3 (3.60-5.2); RDW 13.9 % (11.6-15.6); WHITE BLOOD COUNT 7.7 K/mm3 (4.0-10.0)
[2018-08-26 11:13] LABS: INR 0.92 (0.83-1.09); PROTHROMBIN TIME (PATIENT) 10.8 SEC (9.7-13.0)
[2018-08-26 11:16] LABS: ACTIVATED PTT 32.3 SECONDS (25.2-36.5)
[2018-08-26 11:37] LABS: BILIRUBIN,TOTAL 0.3 mg/dL (0.2-1); CALCIUM 9.2 mg/dL (8.5-10.1); CREATININE 0.8 mg/dL (0.55-1.3); TOT PROT 7.6 g/dl (6.4-8.2)
[2018-08-26 11:47] LABS: EPI CELLS 1.7 /HPF (0-5/HPF); PH,URINE 5.5 (5.0-8.0); URINE APPEARANCE CLEAR; URINE BACTERIA 15.9 /hpf (NEGATIVE); URINE BILIRUBIN NEGATIVE (NEGATIVE); URINE CASTS 0 /lpf (0-8); URINE COLOR YELLOW; URINE GLUCOSE (UA) NEGATIVE (NEGATIVE); URINE KETONE NEGATIVE (NEGATIVE); URINE LEUK ESTERASE 2+ (NEGATIVE); URINE NITRITE NEGATIVE (NEGATIVE); URINE PROTEIN NEGATIVE (NEGATIVE); URINE RBC 1 /hpf (0-4); URINE UROBILINOGEN 0.2 mg/dL (0.2-1.0); URINE WBC 2 /hpf (0-5)
--- NOTE | 2018-08-26 13:06 | PDOC ---
Documentation entered by Raisa Ruiz SCRIBE, acting as scribe for Davi Amaya MD. Davi Amaya MD: This documentation has been prepared by the robbeSara Victoria, SCRIBE, under my direction and personally reviewed by me in its entirety. I confirm that the documentation accurately reflects all work, treatment, procedures, and medical decision making performed by me. History of Present Illness - General Chief Complaint: Shortness of Breath Stated Complaint: COUGHING/ CONGESTED Time Seen by Provider: 08/26/18 10:19 History Source: Patient, Old Records Exam Limitations: No Limitations - History of Present Illness Initial Comments: 08/26/18 11:21 The patient is a 72 year old female with past medical history of hypertension, hyperlipidemia, breast cancer (s/p left lumpectomy, currently in remission) who presents to the ED with one week of dry cough with wheezing and associated chills. She reports upper back pain that is only present when coughing. Denies fever. Patient denies sick contacts or recent travels. Denies dyspnea on exertion, chest pain or palpitations. Denies urinary complaints. PCP: Dr. Felix Stevenson Past History - Past Medical History Allergies/Adverse Reactions: Allergies Allergy/AdvReac Type Severity Reaction Status Date / Time aspirin Allergy Severe Difficulty Verified 08/26/18 10:05 Breathing codeine [Codeine] Allergy Severe Difficulty Verified 08/26/18 10:05 Breathing Home Medications: Ambulatory Orders Atorvastatin Ca [Lipitor] 40 mg PO DAILY 10/10/14 Amlodipine Besylate 10 mg PO DAILY 05/10/16 Multivit-Min/FA/Lycopen/Lutein [Centrum Silver Tablet] 1 each PO DAILY 06/17/18 Ponce-3 Fatty Acids/Fish Oil [Fish Oil 1,000 mg Capsule] 1 each PO DAILY Albuterol 0.083% Nebulizer Bernice [Ventolin 0.083% Nebulizer Soln -] 1 neb NEB Q6H PRN #20 vial 08/26/18 Albuterol Sulfate Inhaler - [Ventolin HFA Inhaler -] 1 - 2 inh PO Q4H PRN #1 inhaler 08/26/18 Azithromycin 250 mg PO DAILY #6 tablet 08/26/18 Prednisone [Deltasone] 60 mg PO DAILY #12 tablet 08/26/18 Anemia: No Asthma: No Cancer: Yes (LEFT BREAST, S/P LUMPECTOMY, CHEMO AND RT) Cardiac Disorders: No CVA: No COPD: No CHF: No DVT: No Dementia: No Diabetes: No GI Disorders: Yes (COLON POLYPS) Disorders: No HTN: Yes Hypercholesterolemia: Yes Liver Disease: No Seizures: No Thyroid Disease: No - Surgical History Abdominal Surgery: No Appendectomy: No Cardiac Surgery: No Cholecystectomy: No Lung Surgery: No Neurologic Surgery: No Orthopedic Surgery: No - Immunization History Immunization Up to Date: Yes - Suicide/Smoking/Psychosocial Hx Smoking Status: No Smoking History: Never smoked Have you smoked in the past 12 months: No Number of Cigarettes Smoked Daily: 0 Hx Alcohol Use: No Drug/Substance Use Hx: No Substance Use Type: None Hx Substance Use Treatment: No Review of Systems - Review of Systems Able to Perform ROS?: Yes Comments:: 08/26/18 11:21 GENERAL/CONSTITUTIONAL: No fever or chills. No weakness. HEAD, EYES, EARS, NOSE AND THROAT: No change in vision. No ear pain or discharge. No sore throat. CARDIOVASCULAR: No chest pain or shortness of breath. RESPIRATORY:(+) Cough, wheezing. No hemoptysis. GASTROINTESTINAL: No nausea, vomiting, diarrhea or constipation. GENITOURINARY: No dysuria, frequency, or change in urination. MUSCULOSKELETAL: (+) back pain. No joint or muscle swelling or pain. SKIN: No rash NEUROLOGIC: No headache, vertigo, loss of consciousness, or change in strength/ sensation. ENDOCRINE: No increased thirst. No abnormal weight change. HEMATOLOGIC/LYMPHATIC: No anemia, easy bleeding, or history of blood clots. ALLERGIC/IMMUNOLOGIC: No hives or skin allergy. All Other Systems: Reviewed and Negative *Physical Exam - Vital Signs Last Vital Signs Temp Pulse Resp BP Pulse Ox 98.1 F 91 H 18 110/66 95 08/26/18 10:06 08/26/18 10:06 08/26/18 10:06 08/26/18 10:06 08/26/18 10:06 - Physical Exam Comments: 08/26/18 11:22 GENERAL: Awake, alert, and fully oriented, in no acute distress HEAD: No signs of trauma LUNGS: Bilateral expiratory wheezing, speaking in complete sentences. Breath sounds equal, clear to auscultation bilaterally. No crackles. HEART: Regular rate and rhythm, normal S1 and S2, no murmurs, rubs or gallops ABDOMEN: Soft, nontender, normoactive bowel sounds. No guarding, no rebound. No masses EXTREMITIES: Normal range of motion, no edema. No clubbing or cyanosis. No cords, erythema, or tenderness NEUROLOGICAL: Cranial nerves II through XII grossly intact. Normal speech SKIN: Warm, Dry, normal turgor, no rashes Heart Score/ECG Review #1 ECG reviewed & interpreted by me at: 11:20 08/26/18 18:21 NSR 80, +LVFH, no std/yris, QTC 489 msec, nonspecific T wave flattening ED Treatment Course - LABORATORY CBC & Chemistry Diagram: 08/26/18 10:40 08/26/18 10:40 - RADIOLOGY Radiology Studies Ordered: Category Date Time Status CHEST X-RAY PORTABLE* [RAD] Stat Radiology 08/26/18 10:20 Taken Medical Decision Making - Medical Decision Making 08/26/18 11:02 A portion of this note was documented by scribe services under my direction. I have reviewed the details of the note, within reason, and agree with the documentation with the following case summary and management plan written by me. Patient treated in the ED. Nursing notes are reviewed and incorporated into the medical decision-making. Vital signs reviewed. Vital Signs Temp Pulse Resp BP Pulse Ox 98.1 F 91 H 18 110/66 95 08/26/18 10:06 08/26/18 10:06 08/26/18 10:06 08/26/18 10:06 08/26/18 10:06 Peripheral IV access obtained by the nurse, laboratory studies are drawn and sent, reviewed and interpreted by myself. 72 year old female with Past medical history of hypertension, hyperlipidemia, breast cancer with lumpectomy in the left side currently cancer free presents with cough for one week. Patient denies sick contacts or recent travels. Patient reports wheezing and dry cough. No fevers but reports some intermittent chills. Patient states that she has some upper back pain with cough but none at rest. Denies dyspnea on exertion. Patient did report an admission approximately 2 years ago with similar results. Patient was diagnosed with asthmatic bronchitis at that time. Was omitted with do a nabs and prednisone. Patient reports that this is a very similar incident. Patient has never been formally diagnosed with asthma or COPD. However, we'll treat as asthma as of now. We'll give duonebs and prednisone and reassess. Chest x-ray to rule out pneumonia reassess. 08/26/18 12:56 CBC, BMP 08/26/18 10:40 08/26/18 10:40 CMP Sodium 136 mmol/L (136-145) 08/26/18 10:40 Potassium 4.0 mmol/L (3.5-5.1) 08/26/18 10:40 Chloride 104 mmol/L (98-107) 08/26/18 10:40 Carbon Dioxide 26 mmol/L (21-32) 08/26/18 10:40 Anion Gap 6 MMOL/L (8-16) L 08/26/18 10:40 BUN 16 mg/dL (7-18) 08/26/18 10:40 Creatinine 0.8 mg/dL (0.55-1.3) 08/26/18 10:40 Est GFR (CKD-EPI)AfAm 84.18 08/26/18 10:40 Est GFR (CKD-EPI)NonAf 72.63 08/26/18 10:40 Random Glucose 92 mg/dL (74-106) 08/26/18 10:40 Calcium 9.2 mg/dL (8.5-10.1) 08/26/18 10:40 Total Bilirubin 0.3 mg/dL (0.2-1) 08/26/18 10:40 AST 23 U/L (15-37) 08/26/18 10:40 ALT 27 U/L (13-61) 08/26/18 10:40 Alkaline Phosphatase 103 U/L (45-117) 08/26/18 10:40 Troponin I 0.04 ng/ml (0.00-0.05) 08/26/18 10:40 B-Natriuretic Peptide 289.0 pg/ml (5-125) H 08/26/18 10:40 Total Protein 7.6 g/dl (6.4-8.2) 08/26/18 10:40 Albumin 4.0 g/dl (3.4-5.0) 08/26/18 10:40 Chest xray reviewed by me, pending official radiology read. No acute findings. Pt reports feeling significantly better with duonebs and prednisone. At this time, will hold off on azithromycin as I suspect that this is viral. However, I will write a prescription of azithromycin if patient symptoms persist for several more days. Pt verbalizes understanding and agrees with plan. Discharge diagnosis: viral bronchitis. Discharge and also *DC/Admit/Observation/Transfer Diagnosis at time of Disposition: Asthmatic bronchitis Qualifiers: Asthma severity: unspecified severity Asthma persistence: unspecified Asthma complication type: uncomplicated Qualified Code(s): J45.909 - Unspecified asthma , uncomplicated - Discharge Dispostion Disposition: HOME Condition at time of disposition: Improved Decision to Admit order: No - Prescriptions Prescriptions: Albuterol 0.083% Nebulizer Bernice [Ventolin 0.083% Nebulizer Soln -] 1 neb NEB Q6H PRN #20 vial PRN Reason: Wheezing Albuterol Sulfate Inhaler - [Ventolin HFA Inhaler -] 1 - 2 inh PO Q4H PRN #1 inhaler PRN Reason: Wheezing Azithromycin 250 mg PO DAILY #6 tablet Prednisone [Deltasone] 60 mg PO DAILY #12 tablet - Referrals Referrals: Nathaniel Stevenson MD [Primary Care Provider] - - Patient Instructions Printed Discharge Instructions: DI for Acute Bronchitis Additional Instructions: Please use albuterol every 4 to 6 hours as needed for wheezing. Take 60 mg prednisone daily for 4 more days. Starting tomorrow. If your symptoms persist for another few more days, please start using the z- giancarlo (antibiotic). Please call your doctor and schedule a followup. - Post Discharge Activity
[2018-08-26 13:14] VITALS: BP 112/62; PULSE 72; TEMP 98.7
--- NOTE | 2018-08-27 12:10 | EKG ---
Test Reason : Blood Pressure : / mmHG Vent. Rate : 080 BPM Atrial Rate : 080 BPM P-R Int : 190 ms QRS Dur : 076 ms QT Int : 424 ms P-R-T Axes : 014 -26 037 degrees QTc Int : 489 ms NORMAL SINUS RHYTHM VOLTAGE CRITERIA FOR LEFT VENTRICULAR HYPERTROPHY T WAVE ABNORMALITY, CONSIDER LATERAL ISCHEMIA PROLONGED QT ABNORMAL ECG WHEN COMPARED WITH ECG OF 08-OCT-2015 16:37, NO SIGNIFICANT CHANGE WAS FOUND Confirmed by MD Franki, Sonido ([id number]) on 08/27/2018 12:10:17 PM Referred By: Confirmed By:Sonido Doan MD
== END 2018-08-26 13:25 | disposition home or self-care (01) ==
LOC: SUPCPDRO 09:49 → JER 09:49
PROC: 3E0F7GC Introduction of Other Therapeutic Substance into Respiratory Tract, Via Natural or Artificial Opening (ICD-10-PCS; principal; 2018-08-26)
DX: J45.909 Unspecified asthma, uncomplicated (principal)
CPT/HCPCS: 36415; 71045-TC-FY; 80053; 81003; 82803; 83880; 84484; 85025; 85610; 85730; 87086; 93005; 93010; 99284-25

== ENCOUNTER 2019-06-10 10:31 | Emergency (ER) | payer OTHER, MEDICARE ==
[2019-06-10 10:36] VITALS: BP 130/75; PULSE 90; TEMP 98; BMI 31.9
--- NOTE | 2019-06-10 11:33 | PDOC ---
History of Present Illness - General Chief Complaint: Shortness of Breath Stated Complaint: cough, sob, wheezing Time Seen by Provider: 06/10/19 11:12 History Source: Patient Exam Limitations: No Limitations - History of Present Illness Initial Comments: 06/10/19 11:33 Machelle Motley is a 73F with H breast cancer s/p lumpectomy/chemo last treatment 1 year ago, bronchitis presenting with 3 weeks of coughing. Patient reports that 3 weeks ago started having fever/chills with coughing. Since then, fever/chills has resolved, but has intermittent dry, non-productive coughing that has persisted, worse at night. Similar to prior episode of bronchitis a few months ago. Got flu shot this year. Denies sick contacts. No prior cardiac history or CHF, denies LE edema. Complains of SOB during coughing fits but not at rest, denies chest pain or abd pain. Has tried taking albuterol nebs from prior bronchitis before bed, works for a few hours but wakes up coughing once it wears off. No history of COPD or asthma. True allergy to ASA, reported codeine allergy but has taken Percocets. Denies alcohol/tobacco/drug use. Past History - Past Medical History Allergies/Adverse Reactions: Allergies Allergy/AdvReac Type Severity Reaction Status Date / Time aspirin Allergy Severe Difficulty Verified 06/10/19 10:36 Breathing codeine [Codeine] Allergy Severe Difficulty Verified 06/10/19 10:36 Breathing Home Medications: Ambulatory Orders Atorvastatin Ca [Lipitor] 40 mg PO DAILY 10/10/14 Amlodipine Besylate 10 mg PO DAILY 05/10/16 Multivit-Min/FA/Lycopen/Lutein [Centrum Silver Tablet] 1 each PO DAILY 06/17/18 [place]-3 Fatty Acids/Fish Oil [Fish Oil 1,000 mg Capsule] 1 each PO DAILY Albuterol 0.083% Nebulizer Bernice [Ventolin 0.083% Nebulizer Soln -] 1 neb NEB Q6H PRN #20 vial 08/26/18 Albuterol Sulfate Inhaler - [Ventolin HFA Inhaler -] 1 - 2 inh PO Q4H PRN #1 inhaler 08/26/18 Albuterol 0.083% Nebulizer Bernice [Ventolin 0.083% Nebulizer Soln -] 1 neb NEB Q4H PRN #100 vial 06/10/19 Albuterol Sulfate [Albuterol Sulfate Hfa] 8.5 gm IH Q4H PRN #1 hfa.aer.ad Anastrozole [Arimidex] 1 mg PO DAILY 06/10/19 Anemia: No Asthma: No Cancer: Yes (LEFT BREAST, S/P LUMPECTOMY, CHEMO AND RT) Cardiac Disorders: No CVA: No COPD: No CHF: No DVT: No Dementia: No Diabetes: No GI Disorders: Yes (COLON POLYPS) Disorders: No HTN: Yes Hypercholesterolemia: Yes Liver Disease: No Seizures: No Thyroid Disease: No - Surgical History Abdominal Surgery: No Appendectomy: No Cardiac Surgery: No Cholecystectomy: No Lung Surgery: No Neurologic Surgery: No Orthopedic Surgery: No - Immunization History Immunization Up to Date: Yes - Psycho Social/Smoking Cessation Hx Smoking Status: No Smoking History: Never smoked Have you smoked in the past 12 months: No Number of Cigarettes Smoked Daily: 0 Information on smoking cessation initiated: No Hx Alcohol Use: No Drug/Substance Use Hx: No Substance Use Type: None Hx Substance Use Treatment: No Review of Systems - Review of Systems Able to Perform ROS?: Yes Constitutional: No: Chills, Fever HEENTM: No: Eye Pain, Blurred Vision, Hearing Loss, Difficulty Swallowing Respiratory: Yes: Cough. No: Orthopnea, Shortness of Breath, Wheezing, Productive cough, Hemoptysis Cardiac (ROS): No: Chest Pain, Irregular Heart Rate ABD/GI: No: Constipated, Diarrhea, Nausea, Poor Appetite, Poor Fluid Intake, Vomiting : No: Burning, Dysuria, Discharge, Frequency, Flank Pain, Hematuria Musculoskeletal: No: Back Pain, Neck Pain Integumentary: No: Symptoms Reported Neurological: No: Headache, Numbness, Paresthesia Endocrine: No: Symptoms Reported Hematologic/Lymphatic: No: Symptoms Reported All Other Systems: Reviewed and Negative *Physical Exam - Vital Signs Last Vital Signs Temp Pulse Resp BP Pulse Ox 98 F 90 19 130/75 96 06/10/19 10:34 06/10/19 10:34 06/10/19 10:34 06/10/19 10:34 06/10/19 10:34 - Physical Exam General Appearance: Yes: Nourished, Appropriately Dressed. No: Apparent Distress HEENT: positive: EOMI, MANDY, Normal Voice, Symmetrical, Pharynx Normal, Hearing Grossly Normal. negative: Scleral Icterus (R), Scleral Icterus (L), Pharyngeal Erythema, Tonsillar Exudate, Tonsillar Erythema, Sinus Tenderness Neck: positive: Trachea midline, Normal Thyroid, Supple. negative: Tender, Rigid, Lymphadenopathy (R), Lymphadenopathy (L) Respiratory/Chest: positive: Lungs Clear, Normal Breath Sounds, Other (good air movment all lung schreiber without wheezing or rales). negative: Chest Tender, Respiratory Distress, Accessory Muscle Use, Labored Respiration, Crackles, Rales , Rhonchi, Stridor, Wheezing Cardiovascular: positive: Regular Rhythm, Regular Rate. negative: Edema, Murmur Gastrointestinal/Abdominal: positive: Normal Bowel Sounds, Flat, Soft. negative : Tender, Organomegaly, Pulsatile Mass, Distended, Guarding, Rebound Musculoskeletal: positive: Normal Inspection. negative: CVA Tenderness, Vertebral Tenderness Extremity: positive: Normal Capillary Refill, Normal Inspection, Normal Range of Motion, Pelvis Stable. negative: Tender Integumentary: positive: Normal Color, Dry, Warm Neurologic: positive: Fully Oriented, Alert, Normal Mood/Affect, Normal Response Medical Decision Making - Medical Decision Making 06/10/19 12:45 Patient presents with 3 weeks of coughing without recent fever/chills, no SOB at rest. VS stable in ED, satting well on RA, no concerning findings on physical exam. No sick contacts, immunized against flu this year. Last cancer treatment one year ago. Symptoms consistent with bronchitis, will get XR to r/o PNA, no evidence of CHF exacerbation or PE. Evaluation via: - CXR for eval PNA - influenza test for eval flu Flu test negative. CXR no evidence of pulmonary disease. Symptoms consistent with bronchitis, giving Duonebs in ED and discharging home with PMD f/u and albuterol nebs/inhaler for sx. Discharge - Discharge Information Problems reviewed: Yes Clinical Impression/Diagnosis: Bronchitis Condition: Stable Disposition: HOME - Admission No - Additional Discharge Information Prescriptions: Albuterol 0.083% Nebulizer Bernice [Ventolin 0.083% Nebulizer Soln -] 1 neb NEB Q4H PRN #100 vial PRN Reason: Cough Albuterol Sulfate [Albuterol Sulfate Hfa] 8.5 gm IH Q4H PRN #1 hfa.aer.ad PRN Reason: Cough - Follow up/Referral Referrals: Felix Stevenson MD [Primary Care Provider] - - Patient Discharge Instructions Patient Printed Discharge Instructions: DI for Acute Bronchitis Additional Instructions: Today you were evaluated for a cough. Your x-ray did not show pneumonia. You do not have the flu. At home, please use the albuterol nebulizer as needed for cough every 4-6 hours, and we are sending an inhaler as well. Please see your primary doctor in the next 7 days for further care. If you experience fever, chills, vomiting, productive cough, or any other new or concerning symptoms, please return to the emergency room. - Post Discharge Activity
--- NOTE | 2019-06-10 12:02 | PDOC ---
Attending Attestation - Resident Resident Name: Rocael Madrigal - ED Attending Attestation I have performed the following: I have examined & evaluated the patient, The case was reviewed & discussed with the resident, I agree w/resident's findings & plan - HPI HPI: 06/10/19 12:01 73 year old female with past medical history of hypertension, hyperlipidemia, breast cancer (s/p left lumpectomy, currently in remission) who presents to the ED with cough and congestion x 3 weeks. nighttime wheezing. +second hand exposure. Denies fever. Patient denies sick contacts or recent travels. Denies dyspnea on exertion, chest pain or palpitations. Denies urinary complaints. no syncope. no AP, n/v PCP: Dr. Felix Stevenson 06/10/19 12:52 - Physicial Exam PE: 06/10/19 12:49 Agree with the resident's HPI and PE as documented in the electronic medical record. NAD, well appearing, EOMI, PERRL, nl conjunctiva, anicteric; neck supple. lungs clear, no respiratory distress, RRR, abdomen soft nontender. no rebound, guarding. Back nontender. EASLEY x4, no focal neuro deficits. No peripheral edema. normal color for ethnicity, WWP. - Medical Decision Making 06/10/19 12:49 Vital Signs Temp Pulse Resp BP Pulse Ox 98 F 90 19 130/75 96 06/10/19 10:34 06/10/19 10:34 06/10/19 10:34 06/10/19 10:34 06/10/19 10:34 ddx. influenza, bronchitis, URI, pleurisy. no cp or sob now Vital signs reviewed, no fever, normotensive, no tachycardia, normal respirations, saturation 96% on room air without difficulty. flu neg. Chest x-ray is clear, no evidence of pneumonia or infection or effusion Patient most likely has upper respiratory infection, no evidence of bacteria infection, nontoxic, nonseptic appearing, supportive care indicated, patient does use albuterol nebulizer as needed for her symptoms which are worse at nighttime, told while she is sick with a viral illness and her underlying history of intermittent asthma, may warrant more frequent use every 4-6 hours. Patient told to continue with lemon drops, honey, tea. Proper handwashing instructed. Avoid contact with secondhand smoke as she does have exposure at home from family member Pt to be discharged in stable condition. Patient made aware of clinical impression, treatment recommendations and disposition plan, return precautions discussed (including but not limited to new or persistent/worsening symptoms, pain, fevers, or signs of infection, chest pain, respiratory distress, inability to tolerate oral intake, dehydration, syncope, or neurologic changes) . Follow up with PMD and/or specialist as recommended, follow up information provided, take medications as instructed for duration of time. continue with supportive care, avoid triggers and precipitants. All questions answered to patient's satisfaction and expressed understanding and comfort with this. At the time of discharge, the patient is alert, clinically improved, tolerating po and verbalizes understanding of instructions, satisfied with the care received and felt comfortable with the plan. Patient does not suffer from an acute life- threatening medical condition at this time and is safe for outpatient follow- up.
--- NOTE | 2019-06-10 12:03 | PDOC ---
*Physical Exam - Vital Signs Last Vital Signs Temp Pulse Resp BP Pulse Ox 98 F 90 19 130/75 96 06/10/19 10:34 06/10/19 10:34 06/10/19 10:34 06/10/19 10:34 06/10/19 10:34 Medical Decision Making - Medical Decision Making 06/10/19 11:59 Patient seen as pre-attending with Dr. Madrigal (PGY-1) and Dr. Puga (Attending) 73 y/o female with a PMHx of Breast CA (s/p chemotherapy, radiation, lumpectomy in 2018), HTN, HLD here with three week h/o non-productive cough. Cough occurs daily and has been steady in frequency and severity with some mild associated wheezing. No fevers/chills, shortness of breath, MIRANDA does endorse some chest pain when she cough. Reports she was treated with an antibiotic for bronchitis last month. Reports secondhand smoke exposure from family member. As per EMR, patient evaluated 08/2018 for similar symptoms. CXR negative for acute pathology including PNA. Patient provisionally diagnosed with viral bronchitis. VS unremarkable Well appearing with good air entry B/L, no anterior chest wall tenderness DDx include bronchits, PNA, influenza, asthma. Will give Duo-Nebs for symptomatic relief. Reassess Influenza negative My read of CXR shows no consolidation/infiltrate. 06/10/19 13:03 D/C home Clinical Impression: Viral Bronchitis Discharge - Discharge Information Problems reviewed: Yes Clinical Impression/Diagnosis: Bronchitis - Follow up/Referral Referrals: Felix Stevenson MD [Primary Care Provider] - - Patient Discharge Instructions - Post Discharge Activity
[2019-06-10] MEDS ORDERED: ALBUTEROL SO4 2.5/IPRATROPIUM 0.5 INH SOL 3 ML VIAL.NEB. NEB ONE ×2 (12:50→12:56)
== END 2019-06-10 13:20 | disposition home or self-care (01) ==
LOC: JER 10:31
PROC: 3E0F7GC Introduction of Other Therapeutic Substance into Respiratory Tract, Via Natural or Artificial Opening (ICD-10-PCS; principal; 2019-06-10)
DX: J40 Bronchitis, not specified as acute or chronic (principal); I10 Essential (primary) hypertension; E78.00 Pure hypercholesterolemia, unspecified; Z85.3 Personal history of malignant neoplasm of breast; Z86.010 Personal history of colon polyps; Z88.6 Allergy status to analgesic agent; Z88.5 Allergy status to narcotic agent
CPT/HCPCS: 71046-TC-FY; 87804; 94640; 99284-25

== ENCOUNTER 2019-06-16 09:17 | Emergency (ER) | payer OTHER, MEDICARE ==
[2019-06-16 09:37] VITALS: BP 113/53; PULSE 96; TEMP 98.2; BMI 31.9
[2019-06-16] MEDS ORDERED: ALBUTEROL SO4 2.5/IPRATROPIUM 0.5 INH SOL 3 ML VIAL.NEB. NEB ONE ×6 (10:36→12:50)
[2019-06-16] MEDS ORDERED: predniSONE 20 MG TABLET (UD) PO ONE (10:43)
[2019-06-16] MEDS ORDERED: predniSONE 20 MG TABLET (UD) ONE (10:48)
--- NOTE | 2019-06-16 12:54 | PDOC ---
History of Present Illness - General Chief Complaint: Cold Symptoms Stated Complaint: BRONCHITIS Time Seen by Provider: 06/16/19 10:18 History Source: Patient Exam Limitations: No Limitations - History of Present Illness Initial Comments: 06/16/19 12:50 73-year-old with history of hypertension, hyperlipidemia, breast cancer status post left lumpectomy presents complaining of cough x4 weeks with shortness of breath worsening over the past week. Upper back pain from coughing, coughing worsens when laying down. Patient was evaluated at this emergency department on June 10 with same symptoms. Chest x-ray negative at that time, went home with albuterol MDI and nebs and reports that despite using these meds as directed her cough and shortness of breath has worsened. Denies fever, vomiting , diarrhea, nausea, chest pain, recent travel, back pain. Patient denies smoking tobacco however is exposed to secondhand smoking. ROS: As above PE: GENERAL: well-appearing, NAD, speaking full sentences HEAD: NCAT EYES: Pupils equal, round and reactive to light, sclera anicteric, conjunctiva clear ENT: pharynx: no erythema, no exudate, uvula midline NECK: supple CHEST: nontender RESP: Moderate wheezing throughout all lung schreiber CARDIO: rrr, no m/g/r ABD: +BS, soft, nontender, non distended BACK: no midline spinal ttp, no CVAT EXTREMITIES: Normal range of motion, no edema NEUROLOGICAL: Normal speech, normal gait SKIN: Warm, Dry Is this a multiple visit Asthma Patient?: No Past History - Past Medical History Allergies/Adverse Reactions: Allergies Allergy/AdvReac Type Severity Reaction Status Date / Time aspirin Allergy Severe Difficulty Verified 06/16/19 10:07 Breathing codeine [Codeine] Allergy Severe Difficulty Verified 06/16/19 10:07 Breathing Home Medications: Ambulatory Orders Atorvastatin Ca [Lipitor] 40 mg PO DAILY 10/10/14 Amlodipine Besylate 10 mg PO DAILY 05/10/16 Multivit-Min/FA/Lycopen/Lutein [Centrum Silver Tablet] 1 each PO DAILY 06/17/18 [place]-3 Fatty Acids/Fish Oil [Fish Oil 1,000 mg Capsule] 1 each PO DAILY Albuterol 0.083% Nebulizer Bernice [Ventolin 0.083% Nebulizer Soln -] 1 neb NEB Q6H PRN #20 vial 05/13/19 Albuterol Sulfate Inhaler - [Ventolin HFA Inhaler -] 1 - 2 inh PO Q4H PRN #1 inhaler 08/26/18 Albuterol 0.083% Nebulizer Bernice [Ventolin 0.083% Nebulizer Soln -] 1 neb NEB Q4H PRN #100 vial 06/10/19 Albuterol Sulfate [Albuterol Sulfate Hfa] 8.5 gm IH Q4H PRN #1 hfa.aer.ad Anastrozole [Arimidex] 1 mg PO DAILY 06/10/19 Benzonatate [Tessalon Pearls -] 100 mg PO TID #21 capsule 06/16/19 Prednisone [Prednisone 50 MG TABLETS] 50 mg PO DAILY #4 tablet 06/16/19 Anemia: No Asthma: No Cancer: Yes (LEFT BREAST, S/P LUMPECTOMY, CHEMO AND RT) Cardiac Disorders: No CVA: No COPD: No CHF: No DVT: No Dementia: No Diabetes: No GI Disorders: Yes (COLON POLYPS) Disorders: No HTN: Yes Hypercholesterolemia: Yes Liver Disease: No Seizures: No Thyroid Disease: No - Surgical History Abdominal Surgery: No Appendectomy: No Cardiac Surgery: No Cholecystectomy: No Lung Surgery: No Neurologic Surgery: No Orthopedic Surgery: No - Immunization History Immunization Up to Date: Yes - Psycho Social/Smoking Cessation Hx Smoking Status: No Smoking History: Never smoked Have you smoked in the past 12 months: No Number of Cigarettes Smoked Daily: 0 Information on smoking cessation initiated: No Hx Alcohol Use: No Drug/Substance Use Hx: No Substance Use Type: None Hx Substance Use Treatment: No *Physical Exam - Vital Signs Last Vital Signs Temp Pulse Resp BP Pulse Ox 98.2 F 96 H 17 113/53 L 96 06/16/19 09:32 06/16/19 09:32 06/16/19 09:32 06/16/19 09:32 06/16/19 09:32 ED Treatment Course - Medications Given in the ED: ED Medications Discontinued Medications Generic Name Dose Route Start Last Admin Trade Name Freq PRN Reason Stop Dose Admin Albuterol/Ipratropium 1 amp 06/16/19 10:36 06/16/19 10:47 Duoneb - NEB 06/16/19 10:37 1 amp ONCE ONE Administration Albuterol/Ipratropium 1 amp 06/16/19 10:36 06/16/19 10:48 Duoneb - NEB 06/16/19 10:37 1 amp ONCE ONE Administration Prednisone 60 mg 06/16/19 10:43 06/16/19 10:50 Deltasone - PO 06/16/19 10:44 60 mg ONCE ONE Administration Medical Decision Making - Medical Decision Making 06/16/19 12:54 73-year-old female with history of hypertension, hyperlipidemia, breast cancer status post left lumpectomy presents complaining of cough and shortness of breath x4 weeks worsening over the past week. Coughing and shortness of breath worsen when laying down. vss Lungs wheezing throughout all schreiber Nebs P.o. prednisone Reassess 06/16/19 13:31 Speaking full sentences Patient feels much better after nebs and p.o. prednisone Lungs clear Stable for discharge Strict return precautions discussed Discharge - Discharge Information Problems reviewed: Yes Clinical Impression/Diagnosis: Wheezing Condition: Stable Disposition: HOME - Admission No - Follow up/Referral Referrals: Felix Stevenson MD [Primary Care Provider] - - Patient Discharge Instructions Additional Instructions: Take prednisone and Tessalon Perles as directed Follow-up with your doctor this week If you develop fever greater than 101, chest pain, worsening shortness of breath or any concerning symptoms return to the ED immediately - Post Discharge Activity
== END 2019-06-16 13:36 | disposition home or self-care (01) ==
LOC: JERFT 09:17
PROC: 3E0F7GC Introduction of Other Therapeutic Substance into Respiratory Tract, Via Natural or Artificial Opening (ICD-10-PCS; principal; 2019-06-16)
PROC: 3E0F7GC Introduction of Other Therapeutic Substance into Respiratory Tract, Via Natural or Artificial Opening (ICD-10-PCS; 2019-06-16)
PROC: 3E0F7GC Introduction of Other Therapeutic Substance into Respiratory Tract, Via Natural or Artificial Opening (ICD-10-PCS; 2019-06-16)
DX: J40 Bronchitis, not specified as acute or chronic (principal); I10 Essential (primary) hypertension; E78.5 Hyperlipidemia, unspecified; Z85.3 Personal history of malignant neoplasm of breast; Z88.5 Allergy status to narcotic agent; Z88.6 Allergy status to analgesic agent
CPT/HCPCS: 94640; 99284-25

== ENCOUNTER 2021-05-26 10:51 | Emergency (ER) | payer OTHER, MEDICARE ==
[2021-05-26 11:32] VITALS: BP 147/94; PULSE 84; TEMP 98.4; BMI 32.9
[2021-05-26] MEDS ORDERED: LIDOCAINE 5% TOPICAL PATCH TP ONE (12:31)
[2021-05-26] MEDS ORDERED: ACETAMINOPHEN 325 MG TABLET (FP) PO ONE (12:31)
[2021-05-26] MEDS ORDERED: ACETAMINOPHEN 325 MG TABLET (FP) ONE (12:43)
[2021-05-26] MEDS ORDERED: LIDOCAINE 5% TOPICAL PATCH ONE (12:44)
[2021-05-26] MEDS ORDERED: LIDOCAINE PATCH REMOVAL MC ONE (22:00)
== END 2021-05-26 13:52 | disposition home or self-care (01) ==
LOC: JER 10:51
DX: M25.511 Pain in right shoulder (principal)
CPT/HCPCS: 73030-TC-RT-FY; 99283-25

== ENCOUNTER 2022-08-21 10:08 | Inpatient (IN) | payer OTHER, MEDICARE ==
[2022-08-21] MEDS ORDERED: predniSONE 20 MG TABLET (UD) PO ONE ×2 (10:52→16:17)
[2022-08-21] MEDS ORDERED: ALBUTEROL SO4 2.5/IPRATROPIUM 0.5 INH SOL 3 ML VIAL.NEB. NEB ONE ×4 (10:52→12:10)
[2022-08-21] MEDS ORDERED: LORATADINE 10 MG TABLET PO ONE (10:52)
[2022-08-21] MEDS ORDERED: predniSONE 20 MG TABLET (UD) ONE ×2 (11:16→16:40)
[2022-08-21] MEDS ORDERED: LORATADINE 10 MG TABLET ONE (11:16)
[2022-08-21 12:07] LABS: POTASSIUM 3.8 mmol/L (3.5-5.1)
[2022-08-21 12:08] LABS: BASO % 0.2 % (0-2.0); EOS % 0.1 % (0-4.5); HEMATOCRIT 36.4 % (32.4-45.2); HEMOGLOBIN 12.6 GM/dL (10.7-15.3); LYMPH % 8.2 % (8-40); MCH 27.7 pg (25.7-33.7); MCHC 34.6 g/dl (32.0-36.0); MEAN CELL VOLUME 80.2 fl (80-96); MEAN PLT VOLUME 7.5 fl (7.5-11.1); MONO % 3.6 % (3.8-10.2); NEUT % 87.9 % (42.8-82.8); PLATELET COUNT 279 10^3/uL (134-434); RBC 4.54 M/mm3 (3.60-5.2); RDW 15.1 % (11.6-15.6); WHITE BLOOD COUNT 10.4 K/mm3 (4.0-10.0)
[2022-08-21 12:11] LABS: BLOOD UREA NITROGEN 21.4 mg/dL (7-18)
[2022-08-21 12:12] LABS: ALBUMIN 3.3 g/dl (3.4-5.0)
[2022-08-21 12:16] LABS: BILIRUBIN,TOTAL 0.6 mg/dL (0.2-1); TOT PROT 6.6 g/dl (6.4-8.2)
[2022-08-21 12:19] LABS: N-TERMINAL BNP 1879.6 pg/ml (5-450)
[2022-08-21] MEDS ORDERED: PATIENT'S OWN MEDICATION (NON-FORMULARY) (Alendronate Sodium [Fosamax] 70 MG Tablet) PO SCH (16:15)
[2022-08-21] MEDS ORDERED: AZITHROMYCIN IVPB 500 MG/250 ML BAG IVPB ONE (17:08)
[2022-08-21] MEDS: AZITHROMYCIN IVPB 500 MG/250 ML BAG IVPB SCH (17:15)
[2022-08-21] MEDS ORDERED: LEVALBUTEROL HCL 0.31 MG/3 ML VIAL.NEB IH PRN (18:02)
[2022-08-21] MEDS ORDERED: guaiFENesin/D-METHORPHAN HB 10 ML UNIT-DOSE CUPS PO PRN (18:11)
[2022-08-21] MEDS ORDERED: LEVALBUTEROL HCL 0.31 MG/3 ML VIAL.NEB IH SCH (20:00)
[2022-08-21] MEDS ORDERED: IPRATROPIUM BR 0.02% 0.5 MG/2.5 ML VIAL.NEB. NEB ONE (20:42)
[2022-08-21] MEDS: IPRATROPIUM BR 0.02% 0.5 MG/2.5 ML VIAL.NEB. NEB SCH (20:51)
[2022-08-21] MEDS: MOMETASONE FUROATE 220 MCG/IH INHALER IH SCH (22:04)
[2022-08-21] MEDS: ATORVASTATIN CA 40 MG TABLET (FP) PO SCH (22:04)
[2022-08-21] MEDS: APIXABAN 5 MG TABLET PO SCH (22:04)
[2022-08-22 01:50] VITALS: BMI 33.5
[2022-08-22] MEDS: methylPREDNISolone NA SUCC 40 MG/1 ML VIAL IVPUSH SCH ×3 (03:16→17:50)
[2022-08-22 04:10] LABS: MAGNESIUM 2.2 mg/dL (1.8-2.4)
[2022-08-22 07:10] LABS: HEMATOCRIT 36.3 % (32.4-45.2); HEMOGLOBIN 12.6 GM/dL (10.7-15.3); LYMPH % 9.5 % (8-40); MCHC 34.7 g/dl (32.0-36.0); MEAN CELL VOLUME 80.6 fl (80-96); MEAN PLT VOLUME 7.5 fl (7.5-11.1); MONO % 2.9 % (3.8-10.2); NEUT % 87.6 % (42.8-82.8); PLATELET COUNT 280 10^3/uL (134-434); RBC 4.51 M/mm3 (3.60-5.2); RDW 15.7 % (11.6-15.6); WHITE BLOOD COUNT 8.8 K/mm3 (4.0-10.0)
[2022-08-22 07:26] LABS: POTASSIUM 4.2 mmol/L (3.5-5.1)
[2022-08-22] MEDS: IPRATROPIUM BR 0.02% 0.5 MG/2.5 ML VIAL.NEB. NEB SCH ×4 (07:30→20:24)
[2022-08-22 07:34] LABS: ALBUMIN 3.1 g/dl (3.4-5.0); BLOOD UREA NITROGEN 22.6 mg/dL (7-18); CALCIUM 8.8 mg/dL (8.5-10.1)
[2022-08-22 07:35] LABS: MAGNESIUM 2.2 mg/dL (1.8-2.4)
[2022-08-22 07:36] LABS: CREATININE 0.9 mg/dL (0.55-1.3); PHOSPHOROUS 3.1 mg/dL (2.5-4.9)
[2022-08-22 07:38] LABS: TOT PROT 6.3 g/dl (6.4-8.2)
[2022-08-22 07:39] LABS: BILIRUBIN,TOTAL 0.5 mg/dL (0.2-1)
[2022-08-22] MEDS: MOMETASONE FUROATE 220 MCG/IH INHALER IH SCH ×2 (09:55→21:29)
[2022-08-22] MEDS: LETROZOLE 2.5 MG TABLET (FP) PO SCH (09:58)
[2022-08-22] MEDS: MULTIVITAMINS THER W-MINERALS COMBO TABLET (FP) PO SCH (09:58)
[2022-08-22] MEDS: APIXABAN 5 MG TABLET PO SCH ×2 (09:58→21:29)
[2022-08-22] MEDS: NEBIVOLOL 10 MG TABLET (FP) PO SCH (09:58)
[2022-08-22] MEDS: AZITHROMYCIN IVPB 500 MG/250 ML BAG IVPB SCH (09:59)
[2022-08-22] MEDS ORDERED: AZITHROMYCIN IVPB 250 MG in DEXTROSE 5%-WATER - 250 ML IVPB SCH (10:00)
[2022-08-22] MEDS ORDERED: predniSONE 20 MG TABLET (UD) PO SCH (10:00)
[2022-08-22] MEDS ORDERED: ENOXAPARIN NA (PORCINE) 40 MG/0.4 ML DISP.SYRIN SQ SCH (10:00)
[2022-08-22] MEDS ORDERED: predniSONE 20 MG, predniSONE 10 MG, predniSONE 5 MG PO ONE (10:00)
[2022-08-22] MEDS: ATORVASTATIN CA 40 MG TABLET (FP) PO SCH (21:29)
[2022-08-23] MEDS: methylPREDNISolone NA SUCC 40 MG/1 ML VIAL IVPUSH SCH ×3 (03:25→17:05)
[2022-08-23 05:40] VITALS: RESP 18
[2022-08-23] MEDS: IPRATROPIUM BR 0.02% 0.5 MG/2.5 ML VIAL.NEB. NEB SCH ×4 (07:25→20:37)
[2022-08-23] MEDS ORDERED: predniSONE 10 MG, predniSONE 20 MG PO ONE (10:00)
[2022-08-23] MEDS: NEBIVOLOL 10 MG TABLET (FP) PO SCH (10:05)
[2022-08-23] MEDS: MULTIVITAMINS THER W-MINERALS COMBO TABLET (FP) PO SCH (10:05)
[2022-08-23] MEDS: LETROZOLE 2.5 MG TABLET (FP) PO SCH (10:05)
[2022-08-23] MEDS: APIXABAN 5 MG TABLET PO SCH ×2 (10:05→21:31)
[2022-08-23] MEDS: MOMETASONE FUROATE 220 MCG/IH INHALER IH SCH ×2 (10:06→21:45)
[2022-08-23] MEDS: ATORVASTATIN CA 40 MG TABLET (FP) PO SCH (21:30)
[2022-08-24] MEDS: methylPREDNISolone NA SUCC 40 MG/1 ML VIAL IVPUSH SCH (01:27)
[2022-08-24] MEDS: IPRATROPIUM BR 0.02% 0.5 MG/2.5 ML VIAL.NEB. NEB SCH ×2 (07:20→11:30)
[2022-08-24] MEDS ORDERED: predniSONE 10 MG TABLET (UD) PO SCH (10:00)
[2022-08-24] MEDS: MULTIVITAMINS THER W-MINERALS COMBO TABLET (FP) PO SCH (10:05)
[2022-08-24] MEDS: APIXABAN 5 MG TABLET PO SCH (10:06)
[2022-08-24] MEDS: MOMETASONE FUROATE 220 MCG/IH INHALER IH SCH (10:06)
[2022-08-24] MEDS: NEBIVOLOL 10 MG TABLET (FP) PO SCH (10:06)
[2022-08-24] MEDS: LETROZOLE 2.5 MG TABLET (FP) PO SCH (10:06)
[2022-08-24 10:49] VITALS: BP 139/87; PULSE 69; TEMP 98.1
[2022-08-25] MEDS ORDERED: predniSONE 20 MG TABLET (UD) PO ONE (10:00)
[2022-08-26] MEDS ORDERED: predniSONE 10 MG, predniSONE 5 MG PO ONE (10:00)
[2022-08-27] MEDS ORDERED: predniSONE 10 MG TABLET (UD) PO ONE (10:00)
== END 2022-08-24 15:29 | disposition home or self-care (01) | DRG 191 ==
LOC: JER 10:08 → JERBED 15:22 → J4W 21:06
PROVIDERS: ADMIT Internal Medicine; ATTEND Family Medicine
DX: J44.1 Chronic obstructive pulmonary disease with (acute) exacerbation (principal); J45.901 Unspecified asthma with (acute) exacerbation; I10 Essential (primary) hypertension; E78.5 Hyperlipidemia, unspecified; M81.0 Age-related osteoporosis without current pathological fracture; I35.0 Nonrheumatic aortic (valve) stenosis; I48.0 Paroxysmal atrial fibrillation; R77.8 Other specified abnormalities of plasma proteins; Z85.3 Personal history of malignant neoplasm of breast
CPT/HCPCS: 0241U-QW; 36415; 71046-TC-FY; 80053; 83735; 83880; 84100; 84484; 85025; 93005; 93010; 93306-TC; 94640; 99285-25

== ENCOUNTER 2024-02-28 10:31 | Emergency (ER) | payer OTHER, MEDICARE ==
[2024-02-28 10:39] VITALS: BP 128/73; PULSE 80; RESP 16; TEMP 98.4; BMI 32.9
[2024-02-28] MEDS: ALBUTEROL SO4 2.5/IPRATROPIUM 0.5 INH SOL 3 ML VIAL.NEB. NEB ONE (11:41)
[2024-02-28] MEDS ORDERED: ALBUTEROL SO4 2.5/IPRATROPIUM 0.5 INH SOL 3 ML VIAL.NEB. NEB ONE (11:41)
== END 2024-02-28 12:31 | disposition home or self-care (01) ==
LOC: JERFT 10:31
PROC: 3E0F7GC Introduction of Other Therapeutic Substance into Respiratory Tract, Via Natural or Artificial Opening (ICD-10-PCS; principal; 2024-02-28)
DX: S92.535A Nondisplaced fracture of distal phalanx of left lesser toe(s), initial encounter for closed fracture (principal); J40 Bronchitis, not specified as acute or chronic; R05.9 Cough, unspecified; W22.01XA Walked into wall, initial encounter
CPT/HCPCS: 71046-TC-FY; 73630-TC-LT; 99284-25

== ENCOUNTER 2024-11-13 12:39 | Inpatient (IN) | payer OTHER, MEDICARE ==
[2024-11-13 12:48] VITALS: BMI 33.6
[2024-11-13] MEDS ORDERED: ALBUTEROL SO4 2.5/IPRATROPIUM 0.5 INH SOL 3 ML VIAL.NEB. NEB ONE (13:22)
[2024-11-13] MEDS: ALBUTEROL SO4 2.5/IPRATROPIUM 0.5 INH SOL 3 ML VIAL.NEB. NEB SCH ×2 (13:41→22:09)
[2024-11-13 13:59] LABS: ABSOLUTE IMMATURE GRANULOCYTES 0.07 x10^3/uL (0.0-0.031); BASOPHILS # 0.02 x10^3/uL (0.01-0.08); EOSINOPHIL % 0.1 % (0.7-5.8); EOSINOPHILS # 0.01 x10^3/uL (0.04-0.36); MCHC 31.7 g/dl (32.2-35.5); MEAN CELL VOLUME 81.5 fl (79.4-94.8); MEAN PLT VOLUME 9.3 fl (9.4-12.3); MONOCYTE # 0.54 x10^3/uL (0.24-0.86); MONOCYTE % 5.0 % (4.7-12.5); RDW 14.6 % (12.5-17.0)
[2024-11-13 14:06] LABS: INR 1.2 (0.83-1.09); PROTHROMBIN TIME (PATIENT) 13.2 SEC (9.7-13.0)
[2024-11-13 14:09] LABS: ACTIVATED PTT 28.3 SECONDS (25.2-36.5)
[2024-11-13 14:52] LABS: CO2 28 mmol/L (21-32); GLUCOSE,RANDOM 99 mg/dL (74-106)
[2024-11-13 14:55] LABS: CREATININE 1.2 mg/dL (0.55-1.3); SGOT/AST 17 U/L (15-37); SGPT/ALT 22 U/L (13-61)
[2024-11-13 14:57] LABS: TOT PROT 7.1 g/dl (6.4-8.2)
[2024-11-13 14:58] LABS: ALK PHOS 83 U/L (45-117)
[2024-11-13 19:18] LABS: HIV INTERPRETATION NEGATIVE (NEGATIVE)
[2024-11-13 19:20] LABS: HCV DIAGNOSTIC IN-HOUSE W/RFLX NON-REACTIVE (NONREACTIVE)
[2024-11-13] MEDS: APIXABAN 5 MG TABLET PO SCH (22:32)
[2024-11-14] MEDS: ALBUTEROL SO4 2.5/IPRATROPIUM 0.5 INH SOL 3 ML VIAL.NEB. NEB PRN (02:30)
[2024-11-14 08:25] LABS: ABSOLUTE IMMATURE GRANULOCYTES 0.06 x10^3/uL (0.0-0.031); BASOPHILS # 0.05 x10^3/uL (0.01-0.08); EOSINOPHIL % 1.8 % (0.7-5.8); EOSINOPHILS # 0.14 x10^3/uL (0.04-0.36); MCHC 30.9 g/dl (32.2-35.5); MEAN CELL VOLUME 82.9 fl (79.4-94.8); MEAN PLT VOLUME 9.4 fl (9.4-12.3); MONOCYTE # 0.63 x10^3/uL (0.24-0.86); MONOCYTE % 7.9 % (4.7-12.5); RDW 14.9 % (12.5-17.0)
[2024-11-14 08:57] LABS: CO2 31.0 mmol/L (21-32); GLUCOSE,RANDOM 92.0 mg/dL (74-106)
[2024-11-14 09:01] LABS: CREATININE 1.1 mg/dL (0.55-1.3); SGOT/AST 17.0 U/L (15-37); SGPT/ALT 22.0 U/L (13-61); TOT PROT 6.6 g/dl (6.4-8.2)
[2024-11-14 09:03] LABS: ALK PHOS 69.0 U/L (45-117)
[2024-11-14] MEDS: methylPREDNISolone NA SUCC 40 MG/1 ML VIAL IVPUSH SCH ×2 (09:07→17:26)
[2024-11-14] MEDS: LETROZOLE 2.5 MG TABLET (FP) PO SCH (09:08)
[2024-11-14] MEDS: NEBIVOLOL 10 MG TABLET (FP) PO SCH (11:23)
[2024-11-14] MEDS: CEFTRIAXONE 1 GM in DEXTROSE 5%-WATER - 50 ML IVPB ONE (11:23)
[2024-11-14] MEDS: FLUTICASONE/UMECLIDIN/VILANTER(200-62.5-25 TRELEGY ELLIPTA) INAHLER IH SCH ×2 (12:49→12:54)
[2024-11-14] MEDS: ALBUTEROL SO4 0.083% IH SOL 2.5 MG/3 ML VIAL.NEB. NEB SCH (16:06)
[2024-11-14] MEDS: ATORVASTATIN CA 40 MG TABLET (FP) PO SCH (21:45)
[2024-11-15] MEDS: CEFTRIAXONE 1 GM in DEXTROSE 5%-WATER - 50 ML IVPB SCH (20:59)
[2024-11-15] MEDS: DOXYCYCLINE INJECTION 100 MG in DEXTROSE 5%-WATER 100 ML IVPB SCH (22:21)
[2024-11-16 08:56] LABS: ABSOLUTE IMMATURE GRANULOCYTES 0.12 x10^3/uL (0.0-0.031); BASOPHILS # 0.02 x10^3/uL (0.01-0.08); EOSINOPHIL % 0.0 % (0.7-5.8); EOSINOPHILS # 0.00 x10^3/uL (0.04-0.36); MCHC 31.2 g/dl (32.2-35.5); MEAN CELL VOLUME 81.3 fl (79.4-94.8); MEAN PLT VOLUME 9.6 fl (9.4-12.3); MONOCYTE # 0.27 x10^3/uL (0.24-0.86); MONOCYTE % 2.2 % (4.7-12.5); RDW 15.0 % (12.5-17.0)
[2024-11-16 09:06] LABS: CO2 28.0 mmol/L (21-32); GLUCOSE,RANDOM 119.0 mg/dL (74-106)
[2024-11-16 09:09] LABS: CREATININE 1.0 mg/dL (0.55-1.3); SGOT/AST 14.0 U/L (15-37); SGPT/ALT 21.0 U/L (13-61)
[2024-11-16 09:11] LABS: TOT PROT 6.8 g/dl (6.4-8.2)
[2024-11-16 09:12] LABS: ALK PHOS 70.0 U/L (45-117)
[2024-11-17] MEDS ORDERED: dilTIAZem HCL 50 MG/10 ML - 10 ML VIAL IVPUSH ONE (08:31)
[2024-11-17] MEDS ORDERED: LEVALBUTEROL HCL 0.31 MG/3 ML VIAL.NEB IH PRN (08:33)
[2024-11-17] MEDS ORDERED: NEBIVOLOL 10 MG TABLET (FP) PO SCH (08:33)
[2024-11-17] MEDS: NEBIVOLOL 5 MG TABLET (FP) PO SCH (09:42)
[2024-11-17 10:37] LABS: CO2 29.0 mmol/L (21-32); GLUCOSE,RANDOM 178.0 mg/dL (74-106)
[2024-11-17 10:41] LABS: CREATININE 1.2 mg/dL (0.55-1.3)
[2024-11-17] MEDS: dilTIAZem HCL 25 MG/5 ML - 5 ML VIAL IVPUSH ONE (13:28)
[2024-11-17] MEDS: LEVALBUTEROL HCL 0.31 MG/3 ML VIAL.NEB IH SCH (14:00)
[2024-11-17] MEDS: FUROSEMIDE 40 MG/4 ML INJECTABLE VIAL IVPUSH ONE (16:34)
[2024-11-18 07:21] LABS: ABSOLUTE IMMATURE GRANULOCYTES 0.28 x10^3/uL (0.0-0.031); BASOPHILS # 0.04 x10^3/uL (0.01-0.08); EOSINOPHIL % 0.0 % (0.7-5.8); EOSINOPHILS # 0.00 x10^3/uL (0.04-0.36); MCHC 31.7 g/dl (32.2-35.5); MEAN CELL VOLUME 80.7 fl (79.4-94.8); MEAN PLT VOLUME 9.7 fl (9.4-12.3); MONOCYTE # 1.04 x10^3/uL (0.24-0.86); MONOCYTE % 8.1 % (4.7-12.5); RDW 15.2 % (12.5-17.0)
[2024-11-18 07:40] LABS: CO2 29.0 mmol/L (21-32); GLUCOSE,RANDOM 88.0 mg/dL (74-106)
[2024-11-18 07:43] LABS: CREATININE 1.0 mg/dL (0.55-1.3)
[2024-11-18] MEDS: methylPREDNISolone NA SUCC 40 MG/1 ML VIAL IVPUSH SCH (10:09)
[2024-11-18] MEDS: DOXYCYCLINE HYCLATE 100 MG TABLET PO SCH (17:32)
[2024-11-18] MEDS ORDERED: LEVALBUTEROL HCL 0.63 MG/3 ML VIAL.NEB. IH ONE (20:02)
[2024-11-18] MEDS: ACETAMINOPHEN 500 MG TABLET (FP) PO ONE (21:05)
[2024-11-18 22:42] VITALS: RESP 18
[2024-11-19] MEDS: AMOX TR/POT CLAV 875MG/125MG TABLETS (FP) PO SCH (09:30)
[2024-11-19] MEDS: DOXYCYCLINE HYCLATE 100 MG TABLET PO SCH (09:34)
[2024-11-19 15:36] VITALS: PULSE 68
[2024-11-19 17:54] VITALS: BP 145/79; TEMP 98.4
== END 2024-11-19 17:40 | disposition home or self-care (01) | DRG 202 ==
LOC: JER 12:39 → JERBED 18:33 → J4S 20:53 → OBSVTOIN 11-14 13:41
PROVIDERS: ADMIT Family Medicine; ATTEND Family Medicine
DX: J45.901 Unspecified asthma with (acute) exacerbation (principal); J18.9 Pneumonia, unspecified organism; I24.89 Other forms of acute ischemic heart disease; I10 Essential (primary) hypertension; E78.5 Hyperlipidemia, unspecified; I48.91 Unspecified atrial fibrillation; Z79.01 Long term (current) use of anticoagulants
CPT/HCPCS: 36415; 71045-TC-FY; 71046-TC-FY; 80048; 80053; 82550; 83735; 83880; 84100; 84484; 85025; 85610; 85730; 86803; 87389; 87637-QW; 87899; 93005; 93010; 93306-TC; 94640; 99285-25; G0378